=== PATIENT | female | born 1950 | race Caucasian/White ===

== ENCOUNTER → 2019-02-02 09:43 | Outpatient (CLI) | payer MEDICARE, BC, SELFPAY ==
--- NOTE | 2019-02-02 | DI.MRI.S_ITS ---
PROCEDURE: MR LUMBAR SPINE WO CON INDICATIONS: LUMBAR SPINE PAIN TECHNIQUE: Noncontrast sagittal T1 spin echo and T2 fast echo, sagittal STIR, axial T1 and T2 fast spin echo through the lumbar spine. In cases with scoliosis, additional coronal T2 fast spin echo may be performed. COMPARISON: [facility], MR, L-SPINE WITHOUT CONTRAST, 12/09/2016, 14:29. FINDINGS: Image quality: Excellent. Alignment and Curvature: There is normal bony alignment. Bone Marrow: Marrow is of normal overall signal. Post surgical changes from posterior transpedicular fusion and interbody cage graft placement at L4-5 level are again seen. No acute vertebral body compression fractures. Spinal Cord: Conus medullaris terminates at the T12-L1 level. Visualized cord demonstrates normal signal and size. Paraspinous Soft Tissues: No paravertebral masses. L1-L2: Normal appearance. L2-L3: Normal appearance. L3-L4: Broad-based disc bulge and bilateral facet arthrosis is again seen. There is mild central canal stenosis and [id number] bilateral neuroforaminal narrowing progressed since previous study in 2017. There is likely compression of bilateral exiting L3 nerve roots. L4-L5: Bilateral facet arthrosis is seen. Mild left-sided neuroforaminal narrowing is again noted unchanged from prior study. Mild to moderate right neuroforaminal narrowing is also likely present, unchanged from prior study. L5-S1: Diffuse disc bulge and bilateral facet arthrosis is seen with mild central canal stenosis and bilateral neuroforaminal narrowing unchanged from previous study. IMPRESSION: 1. Prior transpedicular fusion at L4-5 level. No marrow edema. No compression fracture or spondylolisthesis. 2. Slightly worsened broad-based disc bulge and bilateral facet arthrosis at L3-4 level causing moderate central canal stenosis and moderate to severe bilateral neuroforaminal narrowing and mild compression of bilateral exiting L3 nerve roots. 3. Mild bilateral neuroforaminal narrowing at L4-5 level is again seen and unchanged. Diffuse disc bulge and bilateral facet arthrosis at L5-S1 level causing mild central canal stenosis and bilateral neuroforaminal narrowing also unchanged from prior study. Dictated by: Lee Boucher M.D. on 02/02/2019 at 10:37 Approved by: Lee Boucher M.D. on 02/02/2019 at 10:54
== END ==
PROVIDERS: PCP Family Medicine; Visit Provider Physical Medicine & Rehabilitation Pain Medicine
DX: M51.26 Other intervertebral disc displacement, lumbar region (principal); M51.27 Other intervertebral disc displacement, lumbosacral region; M47.816 Spondylosis without myelopathy or radiculopathy, lumbar region; M47.817 Spondylosis without myelopathy or radiculopathy, lumbosacral region; M48.061 Spinal stenosis, lumbar region without neurogenic claudication; M48.07 Spinal stenosis, lumbosacral region; Z98.1 Arthrodesis status
CPT/HCPCS: 72148

== ENCOUNTER 2020-01-12 12:33 | Emergency (ER) | payer MEDICARE, BC, SELFPAY ==
--- NOTE | 2020-01-12 12:35 | DI.RAD.S_ITS ---
PROCEDURE: XR CHEST 1V INDICATIONS: chest pain TECHNIQUE: One view of the chest was acquired. COMPARISON: [facility], , CHEST 1 VIEW, 12/08/2017, 12:24. FINDINGS: Surgical changes and devices: None. Lungs and pleura: Lungs are clear. No pleural effusions or pneumothorax. Mediastinum: Mediastinal contours appear normal. Heart size is enlarged. Bones and chest wall: No suspicious bony lesions. Overlying soft tissues appear unremarkable. IMPRESSION: No acute pulmonary process. Dictated by: Aneta Pascal M.D. on 01/12/2020 at 12:53 Approved by: Aneta Pascal M.D. on 01/12/2020 at 12:53
[2020-01-12 12:40] VITALS: BP 166/85; PULSE 80; RESP 18; TEMP 36.4; O2SAT 99
[2020-01-12 12:54] LABS: Add Manual Diff / Slide Review NO; Basophils Absolute Auto 100 /uL (0-100); Eosinophils Absolute Auto 200 /uL (0-450); Eosinophils Percent Auto 2.3 % (2-4); Hematocrit 44.1 % (36-46); Lymphocytes Absolute Auto 2700 /uL (1100-4500); Lymphocytes Percent Auto 34.5 % (25-40); Mean Corpuscular HGB Conc 34.1 % (30-36); Mean Corpuscular Hemoglobin 32.8 PG (26-34); Mean Corpuscular Volume 96.4 fL (80-100); Monocytes Absolute Auto 800 /uL (0-900); Monocytes Percent Auto 10.6 % (3-14); Neutrophils Absolute Auto 4000 /uL (1500-7000); Neutrophils Percent Auto 51.6 % (50-75); Platelet Count 275 X10^3/uL (150-400); Red Blood Cell Count 4.58 X10^6/uL (4.0-5.2); Red Cell Distribution Width 13.6 % (11.6-14.8); White Blood Cell Count 7.8 X10^3/uL (4.5-11.0)
[2020-01-12 12:55] LABS: Prothrombin Time 11.2 SECONDS (10.1-12.7)
--- NOTE | 2020-01-12 12:55 | ED_ITS ---
HPI - Chest Pain General Chief Complaint: Chest Pain Stated Complaint: symptoms of a heart attack Time Seen by Provider: 01/12/20 12:35 Source: patient Mode of arrival: Ambulatory Limitations: no limitations History of Present Illness HPI narrative: CC: Chest pain HPI: The patient is a 69-year-old female who states that yesterday evening she developed pain in her left shoulder which she thought was secondary to a musculoskeletal etiology. At approximately 3:00 a.m. in the morning she rolled over on her right side and developed severe pain in her left chest around her left breast and side. She also developed a pulse and throbbing in her neck. She stated that when she was lying on her left side she continued to have the pain and discomfort but it was not as intense as on the right side. The pain was sharp and stabbing in nature. She denies being short of breath having any dizziness or being lightheaded. She has had no palpitations or irregular heartbeat. Laying on the right side causes more pain than on the left side. She denies have her having a myocardial infarction congestive heart failure thrombophlebitis or pulmonary embolism. She has had no history of diabetes mellitus or pancreatitis. She denies any fever chills sweats headache nasal drainage but has had a chronic sinus congestion without sore throat. She has had no shortness of breath cough palpitations. She has had chronic low back pain with multiple herniated disc in her low back as well as in her neck. She states that she is in good health other than her spinal column. She denies any abdominal pain nausea vomiting in digestion heartburn diarrhea or urinary symptoms. Her pain and discomfort at this time was 2/10 in intensity. At the worse in the middle the night it was 10/10 in intensity. She denies any kidney problems or kidney failure. Related Data Home Medications Medication Instructions Recorded Confirmed [SANAM RAMOS] 1 tab PO BID #0 12/08/17 acetaminophen 650 mg PO QDAY #0 12/08/17 cetirizine 10 mg PO QDAY #0 12/08/17 cyanocobalamin (vitamin B-12) 500 mcg PO QDAY #0 12/08/17 [Vitamin B-12] diclofenac sodium [Voltaren] 1 ann TOPICAL PRN PRN #0 12/08/17 docusate sodium [DOK] 250 mg PO QDAYP PRN #0 12/08/17 fluticasone propionate [Flonase 1 spray INTRANASAL QDAYP PRN #0 12/08/17 Allergy Relief] folic acid 0.4 mg PO QDAY #0 12/08/17 ibuprofen 200 mg PO QID #0 12/08/17 Previous Rx's Medication Instructions Recorded cyclobenzaprine 10 mg PO TID PRN #15 tab 01/12/20 naproxen [Naprosyn] 500 mg PO BID PRN #20 tab 01/12/20 tramadol 50 mg PO BID PRN #10 tab 01/12/20 Allergies Allergy/AdvReac Type Severity Reaction Status Date / Time nortriptyline [NORTRIPTYLINE] Allergy Severe DIFF. Verified 01/12/20 12:42 BREATHING codeine AdvReac Intermediate STOMACH Verified 01/12/20 12:42 DISTRESS LORENZO PEPPERS Allergy Unknown Uncoded 01/12/20 12:42 GREEN BEANS Allergy Unknown Uncoded 01/12/20 12:42 STAS NUTS Allergy Unknown Uncoded 01/12/20 12:42 Patient History Social History Smoking Status: Never smoker Smoking Status: Never smoker alcohol intake frequency: 0-2 drinks per day Substance Use Type: does not use Exam Narrative Exam Narrative: PHYSICAL EXAM: CONSTITUTIONAL: Awake, Alert, Oriented, Coherent, Cooperative in NAD. Does not appear toxic or ill. HEAD: AT/NC EENT: PERRL, FROM of eyes, no discharge, No drainage from the ears, Tympanic membranes intact bilaterally, clear EAC No epistaxis or nasal drainage Oral mucosa is moist and pink, posterior pharynx is without erythema or exudate. NECK: Supple, no obvious JVD, Trachea is midline without stridor, no palpable LN SPINE: No gross deformity, no palpable tenderness of the cervical, thoracic, lumbar or sacral spine. No CVA tenderness. THORAX: No deformity, retractions, no significant chest wall tenderness to AP compression over the right and left chest. However palpation along the left lower costal sternal margin cause the patient to grimace and sister slightly but was not reproducible. LUNGS: Clear with symmetrical breath sounds without respiratory distress HEART: Normal heart tones, regular rhythm and rate without murmur. ABDOMEN: Soft, non-tender, normal bowel sounds without guarding, rebound, rigidity or palpable mass EXTREMITIES: No edema, cyanosis, deformity or tenderness. SKIN: No rash, bruising, petechiae or purpura. NEURO: Awake, alert, oriented, conversive, cranial nerves II-XII are symmetrical and normal, moves all 4 extremities and is ambulatory Initial Vital Signs Initial Vital Signs: Vital Signs Temperature 97.5 F L 01/12/20 12:40 Pulse Rate 80 01/12/20 12:40 Respiratory Rate 18 01/12/20 12:40 Blood Pressure 166/85 H 01/12/20 12:40 Pulse Oximetry 99 01/12/20 12:40 Course Course Course Narrative: 1410 the patient's chest x-ray revealed no acute cardiopulmonary process. The patient's laboratory chemistries are within normal limits with her initial troponin being 0.0 1 2. Her D-dimer remains pending. 1416. The patient's chest x-ray did not reveal any acute cardiopulmonary disease. The patient's troponin was less than 0.012. Will repeat a 2 hour troponin. Her D-dimer was less than 200. Clinically I believe that the patie nt's chest pain is musculoskeletal in nature. 1423 The patient at the present time is pain free. I explained to her that all of her laboratory tests so far and x-rays as well as EKG were within normal limits. I explained to her that her pain and discomfort sounds musculoskeletal in nature. However we are checking repeat cardiac enzymes. Orders Ordered: ED Orders 01/12/20 12:35 XR chest 1V Stat EKG-12 Lead Stat 01/12/20 12:40 Complete Blood Count AUTO DIFF Stat Comprehensive Metabolic Panel Stat D Dimer Stat Lipase Stat Partial Thromboplastin Time Stat Prothrombin Time INR Stat Troponin & CK Cardiac Panel Stat 01/12/20 13:25 XR shoulder LT min 2V Stat 01/12/20 14:28 Trop I [Troponin I] Stat Discontinued Medications Ketorolac Tromethamine (Toradol) 30 mg IV NOW ONE Stop: 01/12/20 13:28 Last Admin: 01/12/20 13:36 Dose: 30 mg Documented by: NUNO Vital Signs Vital signs: Vital Signs - 8 hr 01/12/20 12:40 01/12/20 14:00 01/12/20 15:30 Temperature 97.5 F L Pulse Rate 80 78 60 Respiratory Rate 18 26 H 13 Blood Pressure 166/85 H Blood Pressure [Right Arm] 94/61 123/57 L Pulse Oximetry 99 99 99 01/12/20 15:55 Temperature Pulse Rate 61 Respiratory Rate 17 Blood Pressure Blood Pressure [Right Arm] Pulse Oximetry 97 MDM - Chest Pain Lab Data Result diagrams: 01/12/20 12:40 01/12/20 12:40 Labs: Lab Results 01/12/20 01/12/20 01/12/20 Range/Units 12:40 12:40 12:40 WBC 7.8 (4.5-11.0) X10^3/uL RBC 4.58 (4.0-5.2) X10^6/uL Hgb 15.0 (12.0-16.0) g/dL Hct 44.1 (36-46) % MCV 96.4 (80-100) fL MCH 32.8 (26-34) PG MCHC 34.1 (30-36) % RDW 13.6 (11.6-14.8) % Plt Count 275 (150-400) X10^3/uL Neut % (Auto) 51.6 (50-75) % Lymph % (Auto) 34.5 (25-40) % [place] % (Auto) 10.6 (3-14) % Eos % (Auto) 2.3 (2-4) % Baso % (Auto) 1.0 (0-2) % Neut # (Auto) 4000 (2799-8625) /uL Lymph # (Auto) 2700 (7769-7738) /uL [place] # (Auto) 800 (0-900) /uL Eos # (Auto) 200 (0-450) /uL Baso # (Auto) 100 (0-100) /uL PT 11.2 (10.1-12.7) SECONDS INR 1.0 (0.9-1.3) APTT 30 (26.4-36.2) SECONDS D-Dimer (<230) ng/mL Sodium 140 (137-145) mmol/L Potassium 4.1 (3.4-5.1) mmol/L Chloride 105 (98-107) mmol/L Carbon Dioxide 27 (22-32) mmol/L BUN 21 H (7-17) mg/dL Creatinine 0.74 (0.52-1.04) mg/dL Estimated GFR > 60.0 (>60) mL/min BUN/Creatinine Ratio 28.4 H (6-22) Glucose 104 (80-110) mg/dL Calcium 10.0 (8.4-10.2) mg/dL Total Bilirubin 0.5 (0.2-1.3) mg/dL AST 32 (14-36) IU/L ALT 14 (<35) IU/L Alkaline Phosphatase 67 (38-126) U/L Total Creatine Kinase 31 (30-135) U/L CK-MB (CK-2) TNP CK-MB (CK-2) Rel Index TNP Troponin I < 0.012 (0.01-0.034) ng/mL Total Protein 8.8 H (6.3-8.2) g/dL Albumin 4.9 (3.5-5.0) g/dL Globulin 3.9 (1.7-4.1) g/dL Albumin/Globulin Ratio 1.3 (1.0-2.8) Lipase 102 (23-300) U/L 01/12/20 01/12/20 Range/Units 12:40 14:28 WBC (4.5-11.0) X10^3/uL RBC (4.0-5.2) X10^6/uL Hgb (12.0-16.0) g/dL Hct (36-46) % MCV (80-100) fL MCH (26-34) PG MCHC (30-36) % RDW (11.6-14.8) % Plt Count (150-400) X10^3/uL Neut % (Auto) (50-75) % Lymph % (Auto) (25-40) % [place] % (Auto) (3-14) % Eos % (Auto) (2-4) % Baso % (Auto) (0-2) % Neut # (Auto) (8104-2012) /uL Lymph # (Auto) (1039-7308) /uL [place] # (Auto) (0-900) /uL Eos # (Auto) (0-450) /uL Baso # (Auto) (0-100) /uL PT (10.1-12.7) SECONDS INR (0.9-1.3) APTT (26.4-36.2) SECONDS D-Dimer < 200 (<230) ng/mL Sodium (137-145) mmol/L Potassium (3.4-5.1) mmol/L Chloride (98-107) mmol/L Carbon Dioxide (22-32) mmol/L BUN (7-17) mg/dL Creatinine (0.52-1.04) mg/dL Estimated GFR (>60) mL/min BUN/Creatinine Ratio (6-22) Glucose (80-110) mg/dL Calcium (8.4-10.2) mg/dL Total Bilirubin (0.2-1.3) mg/dL AST (14-36) IU/L ALT (<35) IU/L Alkaline Phosphatase (38-126) U/L Total Creatine Kinase (30-135) U/L CK-MB (CK-2) CK-MB (CK-2) Rel Index Troponin I < 0.012 (0.01-0.034) ng/mL Total Protein (6.3-8.2) g/dL Albumin (3.5-5.0) g/dL Globulin (1.7-4.1) g/dL Albumin/Globulin Ratio (1.0-2.8) Lipase (23-300) U/L ECG Data Attestation: I personally reviewed and interpreted this ECG as follows: Interpretation: The patient's EKG obtained on January 11 at 12:42 p.m. revealed a normal sinus rhythm with low voltage. There are no acute diagnostic ST segment changes noted. The patient has Q-waves in leads V1 with inverted T-wave and a Q-wave in lead III. The patient has nonspecific flattening of the T-waves throughout the entire EKG. Ventricular rate is 64 rhythm is sinus MT interval QRS are normal QTC is 412 milliseconds with a left axis deviation. Discharge Plan Departure Patient Disposition: Home Clinical Impression: Atypical chest pain, Acute chest wall pain Left shoulder pain Qualifiers: Chronicity: acute Qualified Code(s): M25.512 - Pain in left shoulder Discharge Date/Time: 01/12/20 16:15 Instructions: DI for Atypical Chest Pain, DI for Costochondritis, DI for Chest Pain Activity Restrictions/Additional Instructions: 1. Follow-up with your primary care physician you need to be rechecked on Wednesday. 2. If you develop worsening pain or discomfort that lasts longer than 20 minutes and is unrelieved by her current medications you need to return to the emergency department at the time that you are having pain and discomfort to be evaluated. 3. Your chest pain does not sound cardiac in nature and is musculoskeletal in nature. The medications should be taken as prescribed to help relieve your pain and discomfort. Prescriptions: New naproxen [Naprosyn] 500 mg tablet 500 mg PO BID PRN (Reason: pain) Qty: 20 RF: 0 cyclobenzaprine 10 mg tablet 10 mg PO TID PRN (Reason: muscle spasm and pain) Qty: 15 RF: 0 tramadol 50 mg tablet 50 mg PO BID PRN (Reason: pain) Qty: 10 RF: 0 No Action cetirizine 10 MG tablet 10 mg PO QDAY Qty: 0 RF: 0 fluticasone propionate [Flonase Allergy Relief] 9.9 ML spray,suspension 1 spray Intranasal QDAYP PRNQty: 0 RF: 0 diclofenac sodium [Voltaren] 1 % gel 1 ann Topical PRN PRNQty: 0 RF: 0 acetaminophen 650 MG tablet extended release 650 mg PO QDAY Qty: 0 RF: 0 ibuprofen 200 MG tablet 200 mg PO QID Qty: 0 RF: 0 [BLACK RAMOS] 1 tab PO BID Qty: 0 RF: 0 folic acid 0.4 MG tablet 0.4 mg PO QDAY Qty: 0 RF: 0 cyanocobalamin (vitamin B-12) [Vitamin B-12] 500 MCG tablet 500 mcg PO QDAY Qty: 0 RF: 0 docusate sodium [DOK] 250 MG capsule 250 mg PO QDAYP PRNQty: 0 RF: 0 Referrals: Carlos Solano MD [Non-Staff] -
[2020-01-12 12:58] LABS: PTT Partial Thromboplastin Tim 30 SECONDS (26.4-36.2)
[2020-01-12 12:59] LABS: Alanine Aminotransferase 14 IU/L (<35); Albumin 4.9 g/dL (3.5-5.0); Albumin Globulin Ratio 1.3 (1.0-2.8); Alkaline Phosphatase 67 U/L (38-126); Aspartate Aminotransferase 32 IU/L (14-36); BUN Creatinine Ratio 28.4 (6-22); Bilirubin Total 0.5 mg/dL (0.2-1.3); Blood Urea Nitrogen 21 mg/dL (7-17); Carbon Dioxide 27 mmol/L (22-32); Chloride 105 mmol/L (98-107); Creatine Kinase 31 U/L (30-135); Estimated Glomerular Filt Rate > 60.0 mL/min (>60); Globulin 3.9 g/dL (1.7-4.1); Glucose 104 mg/dL (80-110); HEMOLYSIS 38 (0-50); Lipase 102 U/L (23-300); Potassium 4.1 mmol/L (3.4-5.1); Sodium 140 mmol/L (137-145); Total Protein 8.8 g/dL (6.3-8.2)
[2020-01-12 13:10] LABS: Troponin I < 0.012 ng/mL (0.01-0.034)
--- NOTE | 2020-01-12 13:25 | DI.RAD.S_ITS ---
PROCEDURE: XR SHOULDER LT MIN 2V INDICATIONS: left shoulder pain TECHNIQUE: 3 views of the shoulder were acquired. COMPARISON: [facility], CR, XR CHEST 1V, 01/12/2020, 12:38. FINDINGS: Bones: No displaced fractures or dislocations. No suspicious bony lesions. Visualized ribs appear intact. Mild degenerative changes of the acromioclavicular joint are present. Degenerative changes of the included portions of the spine are not adequately characterized. Soft tissues: No suspicious soft tissue calcifications. IMPRESSION: No acute fracture of the left shoulder. Dictated by: Nils Vasquez M.D. on 01/12/2020 at 13:09 Approved by: Nils Vasquez M.D. on 01/12/2020 at 13:09
[2020-01-12] MEDS: KETOROLAC 60 MG/2 ML VIAL 30 MG IV (13:36)
[2020-01-12 13:40] LABS: D Dimer < 200 ng/mL (<230)
[2020-01-12 14:00] VITALS: BP 94/61; PULSE 78; RESP 26; O2SAT 99
[2020-01-12 14:57] LABS: Troponin I < 0.012 ng/mL (0.01-0.034)
[2020-01-12 15:30] VITALS: BP 123/57; PULSE 60; RESP 13; O2SAT 99
[2020-01-12 15:55] VITALS: PULSE 61; RESP 17; O2SAT 97
== END 2020-01-12 16:15 | disposition home or self-care (01) ==
PROVIDERS: Emergency Provider Emergency Medicine; PCP Family Medicine
DX: R07.89 Other chest pain (principal); M25.512 Pain in left shoulder
CPT/HCPCS: 36415; 71045; 73030; 80053; 82550; 83690; 84484; 85025; 85379; 85610; 85730; 93005; 93010; 96374; 99284; J1885

== ENCOUNTER 2022-02-24 11:15 | Outpatient (RCR) | payer MEDICARE, BC, SELFPAY ==
--- NOTE | 2022-02-18 15:32 | PT.OIE ---
Current Diagnoses Benign paroxysmal vertigo, right ear (02/18/22) Dizziness and giddiness (02/18/22) Visit Care Team Role Provider Type Juan Petty MD Family Provider Non-Staff Primary Care Provider Specialty: Internal Medicine Address: [address], [place], [address] Email: Lucas Davis MD Attending Provider Non-Staff Referring Provider Specialty: Neurology Address: [place], [address] Email: Physical Therapy Initial Evaluation PT-OP-A Visit Information Start: 02/18/22 07:32 Freq: Status: Active Protocol: Document 02/18/22 10:36 AMB (Rec: 02/18/22 11:28 AMB [id number]) Out-Patient Physical Therapy Visit Information Visit Information Visit Type Initial Evaluation Visit Start Time 10:30 Visit Stop Time 11:05 Total Visit Minutes 35 Visit Number 1 PT-OP-B Current Condition Start: 02/18/22 07:32 Freq: Status: Active Protocol: Document 02/18/22 10:36 AMB (Rec: 02/18/22 11:28 AMB [id number]) Current Condition History of Current Condition Onset Date May 2021 Current Complaints dizziness History of Current Condition Bending forward and reaching up are the worst and bring on the dizziness which pt describes as spinning that lasts 10-20 seconds. Lying down turning to the right is worst. Since May with extended gardening. 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 Treatment Goals Patient/Caregiver Goals Reduce dizziness Personal Factors Other Personal Factors That May Effect long history of neck pain, Therapy/Recovery fibromyaglia, lumbar surgery history with neuropathy, osteoporosis PT-OP-C Subjective Start: 02/18/22 07:32 Freq: Status: Active Protocol: Document 02/18/22 10:30 AMB (Rec: 02/19/22 13:00 AMB [id number]) Patient Questionnaires Dizziness Handicap Inventory DHI Score 72 DHI Functional Impairment 60 to 79% Impaired (Score 60- 79) PT-OP-O Vestibular Start: 02/19/22 13:00 Freq: Status: Active Protocol: Document 02/18/22 10:30 AMB (Rec: 02/19/22 13:01 AMB [id number]) Vestibular Assessment Positional Testing [place]-Hallpike Positive Right,Upbeating,< 60 Seconds Comments Vestibular Comments Pain with cervical extension limits pt to one repetition of Rosa maneuver s/p postivie R DixHallpike. Pt did have increased symptoms in #1 and # 3 positions. Educated in BPPV . PT-OP-T Assessment and Plan Start: 02/18/22 07:32 Freq: Status: Active Protocol: Document 02/18/22 10:30 AMB (Rec: 02/20/22 15:32 AMB [id number]) Physical Therapy Assessment Rehab Potential Rehabilitation Potential Good Evaluation Complexity Number of Personal Factors/Comorbidities 1-2 Number of Body Systems Impaired 3 Clinical Presentation at Evaluation Evolving Impairments Impairments Pain,ROM,Vestibular Goals Two Impairment Positive Emanuel Hallpike Short Term Goal (STG) Maame will show no nystagmus or vertigo with Emanuel Hallpike testing. STG Duration 4 weeks One Impairment Dizziness Short Term Goal (STG) Maame will look up without dizziness. STG Duration 4 weeks Assessment Summary Assessment Maame attends physical therapy with a long history of neck pain and dizziness which increased in May after gardening. She did test positive for BPPV today, although her tolerance of the Rosa was poor due to her chronic neck pain. She will benefit from PT to treat her BPPV, although she may need more visits than standard due to her pre-existing neck pain and dizziness. Physical Therapy Plan Frequency and Duration Frequency of Treatment 2x/Week Duration of Treatment 6 weeks Plan of Care Start Date 02/18/22 Plan of Care End Date 04/01/22 Therapeutic Interventions Therapeutic Interventions Balance Training,Manual Therapy,Neuromuscular Re- education,Self-Care/Home Management,Therapeutic Activities,Therapeutic Exercises,Vestibular Rehabilitation Next Visit Focus/Plan Next Note Type Treatment Note Next Visit Plan Reassess R DixHallpike
--- NOTE | 2022-02-18 15:33 | PT.OPPOC ---
Physical, Occupational & Speech Therapy At [facility] Current Diagnoses Benign paroxysmal vertigo, right ear (02/18/22) Dizziness and giddiness (02/18/22) Visit Care Team Role Provider Type Juan Petty MD Family Provider Non-Staff Primary Care Provider Specialty: Internal Medicine Address: [address], [place], [address] Email: Lucas Davis MD Attending Provider Non-Staff Referring Provider Specialty: Neurology Address: [address] [place], [address] Email: Plan Of Care PT-OP-T Assessment and Plan Start: 02/18/22 07:32 Freq: Status: Active Protocol: Document 02/18/22 10:30 AMB (Rec: 02/20/22 15:32 AMB [id number]) Physical Therapy Assessment Rehab Potential Rehabilitation Potential Good Evaluation Complexity Number of Personal Factors/Comorbidities 1-2 Number of Body Systems Impaired 3 Clinical Presentation at Evaluation Evolving Impairments Impairments Pain,ROM,Vestibular Goals Two Impairment Positive Emanuel Hallpike Short Term Goal (STG) Maame will show no nystagmus or vertigo with [place] Hallpike testing. STG Duration 4 weeks One Impairment Dizziness Short Term Goal (STG) Maame will look up without dizziness. STG Duration 4 weeks Assessment Summary Assessment Maame attends physical therapy with a long history of neck pain and dizziness which increased in May after gardening. She did test positive for BPPV today, although her tolerance of the Rosa was poor due to her chronic neck pain. She will benefit from PT to treat her BPPV, although she may need more visits than standard due to her pre-existing neck pain and dizziness. Physical Therapy Plan Frequency and Duration Frequency of Treatment 2x/Week Duration of Treatment 6 weeks Plan of Care Start Date 02/18/22 Plan of Care End Date 04/01/22 Therapeutic Interventions Therapeutic Interventions Balance Training,Manual Therapy,Neuromuscular Re- education,Self-Care/Home Management,Therapeutic Activities,Therapeutic Exercises,Vestibular Rehabilitation Next Visit Focus/Plan Next Note Type Treatment Note Next Visit Plan Reassess R Marika Plan of Care Dates Plan of Care Start Date 02/18/22 Plan of Care End Date 04/01/22 Electronically Signed by: Lucinda Koenig, PT 02/20/22 8904 If you are in agreement with this Plan of Care, please return a signed and dated copy. I have reviewed this Plan of Care and certify that the skilled therapy services above are required to meet the patient?s needs. Physician Signature Date Printed Name and Credentials Clinical Instructor Signature Printed Name and Credentials
--- NOTE | 2022-02-24 13:00 | PT.OTN ---
Current Diagnoses Benign paroxysmal vertigo, right ear (02/24/22) Dizziness and giddiness (02/24/22) Physical Therapy Treatment Note PT-OP-A Visit Information Start: 02/18/22 07:32 Freq: Status: Active Protocol: Document 02/24/22 11:18 AMB (Rec: 02/24/22 12:59 AMB [id number]) Out-Patient Physical Therapy Visit Information Visit Information Visit Type Treatment Note Visit Start Time 11:15 Visit Stop Time 11:30 Total Visit Minutes 15 Visit Number 2 PT-OP-B Current Condition Start: 02/18/22 07:32 Freq: Status: Active Protocol: Document 02/18/22 10:36 AMB (Rec: 02/18/22 11:28 AMB [id number]) Current Condition History of Current Condition Onset Date May 2021 Current Complaints dizziness History of Current Condition Bending forward and reaching up are the worst and bring on the dizziness which pt describes as spinning that lasts 10-20 seconds. Lying down turning to the right is worst. Since May with extended gardening. 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 Treatment Goals Patient/Caregiver Goals Reduce dizziness Personal Factors Other Personal Factors That May Effect long history of neck pain, Therapy/Recovery fibromyaglia, lumbar surgery history with neuropathy, osteoporosis PT-OP-C Subjective Start: 02/18/22 07:32 Freq: Status: Active Protocol: Document 02/24/22 11:18 AMB (Rec: 02/24/22 12:59 AMB [id number]) OP-PT Subjective Patient Comments Patient Comments Pt feels like sx have pretty much resolved, can roll over onto her right side without dizziness now, did have a signficiant amount of neck pain. PT-OP-O Vestibular Start: 02/19/22 13:00 Freq: Status: Active Protocol: Document 02/18/22 10:30 AMB (Rec: 02/19/22 13:01 AMB [id number]) Vestibular Assessment Positional Testing Emanuel-Hallpike Positive Right,Upbeating,< 60 Seconds Comments Vestibular Comments Pain with cervical extension limits pt to one repetition of Rosa maneuver s/p postivie R DixHallpike. Pt did have increased symptoms in #1 and # 3 positions. Educated in BPPV . PT-OP-Q Treatments Start: 02/18/22 07:32 Freq: Status: Active Protocol: Document 02/24/22 11:18 AMB (Rec: 02/24/22 12:59 AMB [id number]) Neuro Re-Education Treatment Other Activities 1 Details R DixHallpike Comments negative, education provided. PT-OP-T Assessment and Plan Start: 02/18/22 07:32 Freq: Status: Active Protocol: Document 02/24/22 11:18 AMB (Rec: 02/24/22 12:59 AMB [id number]) Physical Therapy Assessment Goals Two Impairment Positive Emanuel Hallpike Short Term Goal (STG) Maame will show no nystagmus or vertigo with Emanuel Hallpike testing. STG Duration 4 weeks One Impairment Dizziness Short Term Goal (STG) Maame will look up without dizziness. STG Duration 4 weeks Assessment Summary Assessment Provided with handout for self R Rosa if sx resume in the distant future, but did encourage her to seek out PT if that happens given her history of neck pain. No nystagmus or dizziness today. Physical Therapy Plan Discharge Physical Therapy Discharge Comments No nystagmus or dizziness with R DixHallpike
== END 2022-02-25 12:59 ==
LOC: PHYS 11:15
PROVIDERS: Family Provider Internal Medicine; PCP Internal Medicine; Referring Provider Psychiatry & Neurology Neurology; Visit Provider Psychiatry & Neurology Neurology
DX: R42 Dizziness and giddiness (principal); H81.11 Benign paroxysmal vertigo, right ear
CPT/HCPCS: 97112; 97162

== ENCOUNTER 2022-05-07 14:00 | Outpatient (RCR) | payer MEDICARE, BC, SELFPAY ==
--- NOTE | 2022-04-29 14:27 | PT.OIE ---
Current Diagnoses Dizziness and giddiness (04/29/22) Visit Care Team Role Provider Type Juan Petty MD Attending Provider Non-Staff Family Provider Primary Care Provider Referring Provider Specialty: Internal Medicine Address: [facility] [address], [place], [address] Email: Physical Therapy Initial Evaluation PT-OP-A Visit Information Start: 04/28/22 15:23 Freq: Status: Active Protocol: Document 04/29/22 13:01 AMB (Rec: 04/29/22 13:31 AMB [id number]) Out-Patient Physical Therapy Visit Information Visit Information Visit Type Initial Evaluation Visit Start Time 13:00 Visit Stop Time 13:45 Total Visit Minutes 45 Visit Number 1 PT-OP-B Current Condition Start: 04/28/22 15:23 Freq: Status: Active Protocol: Document 04/29/22 13:01 AMB (Rec: 04/29/22 13:31 AMB [id number]) Current Condition History of Current Condition Onset Date mid March Current Complaints dizziness (worst on the right) History of Current Condition Same thing as a couple months ago. Rolling over to the right. Was doing just fine, out gardening then dizziness came back. PT-OP-C Subjective Start: 04/28/22 15:23 Freq: Status: Active Protocol: Document 04/29/22 13:00 AMB (Rec: 04/29/22 14:27 AMB [id number]) Patient Questionnaires Dizziness Handicap Inventory DHI Score 64 PT-OP-O Vestibular Start: 04/28/22 15:23 Freq: Status: Active Protocol: Document 04/29/22 13:00 AMB (Rec: 04/29/22 14:27 AMB [id number]) Vestibular Assessment Positional Testing Emanuel-Hallpike Positive Right PT-OP-T Assessment and Plan Start: 04/28/22 15:23 Freq: Status: Active Protocol: Document 04/29/22 13:00 AMB (Rec: 04/29/22 14:27 AMB [id number]) Physical Therapy Assessment Rehab Potential Rehabilitation Potential Good Evaluation Complexity Number of Personal Factors/Comorbidities 3 or More Number of Body Systems Impaired 1-2 Clinical Presentation at Evaluation Stable Impairments Impairments Pain,Vestibular Goals Two Impairment Dizziness Short Term Goal (STG) Maame will bend over to garden without dizziness. STG Duration 4 weeks Senior Living Goal (LTG) Maame will perform all bed mobility without dizziness. LTG Duration 8 weeks One Impairment [place]-Hallpike Short Term Goal (STG) Maame will have a negative Emanuel-Hallpike for dizziness and nystagmus. Assessment Summary Assessment Maame returns to physical therapy 2 months s/p resolution of her previous R sided BPPV. She did have torsional upbeating nystagmus with R Emanuel-hallpike today. Pt concerned that gardening may be causing return of sx, as pt does spend an extended time in a forward bent posture due to chronic hip pain that makes it difficult to kneel or squat. Her neck pain does make it difficult to perform the Rosa maneuver, but she was able to tolerate x 2 today . Possible longer treatment duration necessary due to fast return of sx. Physical Therapy Plan Frequency and Duration Frequency of Treatment 2x/Week Duration of Treatment 8 weeks Plan of Care Start Date 04/29/22 Plan of Care End Date 06/24/22 Therapeutic Interventions Therapeutic Interventions Balance Training,Canalithic Repositioning,Home Exercise Program,Neuromuscular Re- education,Self-Care/Home Management,Therapeutic Activities,Therapeutic Exercises,Vestibular Rehabilitation Next Visit Focus/Plan Next Note Type Treatment Note Next Visit Plan Recheck R Emanuel-Hallpike
--- NOTE | 2022-04-29 14:28 | PT.OPPOC ---
Physical, Occupational & Speech Therapy At [facility] Current Diagnoses Dizziness and giddiness (04/29/22) Visit Care Team Role Provider Type Juan Petty MD Attending Provider Non-Staff Family Provider Primary Care Provider Referring Provider Specialty: Internal Medicine Address: [facility] [address], [place], [address] Email: Plan Of Care PT-OP-T Assessment and Plan Start: 04/28/22 15:23 Freq: Status: Active Protocol: Document 04/29/22 13:00 AMB (Rec: 04/29/22 14:27 AMB [id number]) Physical Therapy Assessment Rehab Potential Rehabilitation Potential Good Evaluation Complexity Number of Personal Factors/Comorbidities 3 or More Number of Body Systems Impaired 1-2 Clinical Presentation at Evaluation Stable Impairments Impairments Pain,Vestibular Goals Two Impairment Dizziness Short Term Goal (STG) Maame will bend over to garden without dizziness. STG Duration 4 weeks International Organizer Goal (LTG) Maame will perform all bed mobility without dizziness. LTG Duration 8 weeks One Impairment Emanuel-Hallpike Short Term Goal (STG) Maame will have a negative [place]-Hallpike for dizziness and nystagmus. Assessment Summary Assessment Maame returns to physical therapy 2 months s/p resolution of her previous R sided BPPV. She did have torsional upbeating nystagmus with R Emanuel-hallpike today. Pt concerned that gardening may be causing return of sx, as pt does spend an extended time in a forward bent posture due to chronic hip pain that makes it difficult to kneel or squat. Her neck pain does make it difficult to perform the Rosa maneuver, but she was able to tolerate x 2 today . Possible longer treatment duration necessary due to fast return of sx. Physical Therapy Plan Frequency and Duration Frequency of Treatment 2x/Week Duration of Treatment 8 weeks Plan of Care Start Date 04/29/22 Plan of Care End Date 06/24/22 Therapeutic Interventions Therapeutic Interventions Balance Training,Canalithic Repositioning,Home Exercise Program,Neuromuscular Re- education,Self-Care/Home Management,Therapeutic Activities,Therapeutic Exercises,Vestibular Rehabilitation Next Visit Focus/Plan Next Note Type Treatment Note Next Visit Plan Recheck R [place]-Hallpike Plan of Care Dates Plan of Care Start Date 04/29/22 Plan of Care End Date 06/24/22 Electronically Signed by: Lucinda Koenig, TORIE 04/29/22 [id number] If you are in agreement with this Plan of Care, please return a signed and dated copy. I have reviewed this Plan of Care and certify that the skilled therapy services above are required to meet the patient?s needs. Physician Signature Date Printed Name and Credentials Clinical Instructor Signature Printed Name and Credentials
--- NOTE | 2022-05-07 14:36 | PT.OTN ---
Current Diagnoses Dizziness and giddiness (05/07/22) Physical Therapy Treatment Note PT-OP-A Visit Information Start: 04/28/22 15:23 Freq: Status: Active Protocol: Document 05/07/22 14:05 AMB (Rec: 05/07/22 14:22 AMB [id number]) Out-Patient Physical Therapy Visit Information Visit Information Visit Type Treatment Note Visit Start Time 14:00 Visit Stop Time 14:30 Total Visit Minutes 30 Visit Number 2 PT-OP-B Current Condition Start: 04/28/22 15:23 Freq: Status: Active Protocol: Document 04/29/22 13:01 AMB (Rec: 04/29/22 13:31 AMB [id number]) Current Condition History of Current Condition Onset Date mid March Current Complaints dizziness (worst on the right) History of Current Condition Same thing as a couple months ago. Rolling over to the right. Was doing just fine, out gardening then dizziness came back. PT-OP-C Subjective Start: 04/28/22 15:23 Freq: Status: Active Protocol: Document 05/07/22 14:00 AMB (Rec: 05/07/22 14:32 AMB [id number]) OP-PT Subjective Patient Comments Patient Comments Pt continues to have dizziness , neck pain was really bad. PT-OP-O Vestibular Start: 04/28/22 15:23 Freq: Status: Active Protocol: Document 04/29/22 13:00 AMB (Rec: 04/29/22 14:27 AMB [id number]) Vestibular Assessment Positional Testing Emanuel-Hallpike Positive Right PT-OP-Q Treatments Start: 04/28/22 15:23 Freq: Status: Active Protocol: Document 05/07/22 14:00 AMB (Rec: 05/07/22 14:32 AMB [id number]) Canalithic Repositioning BPPV Treatment Rosa Affected Canal(s) R Rosa Reps 2 Comments UPbeating torsional nystagmus with first rep, not with second. PT-OP-T Assessment and Plan Start: 04/28/22 15:23 Freq: Status: Active Protocol: Document 05/07/22 14:05 AMB (Rec: 05/07/22 14:22 AMB [id number]) Physical Therapy Assessment Goals Two Impairment Dizziness Short Term Goal (STG) Maame will bend over to garden without dizziness. STG Duration 4 weeks Custodial Goal (LTG) Maame will perform all bed mobility without dizziness. LTG Duration 8 weeks One Impairment [place]-Hallpike Short Term Goal (STG) Maame will have a negative Emanuel-Hallpike for dizziness and nystagmus. Assessment Summary Assessment Maame was positive with Jessa Hairston again, Rosa performed x 2, then encouraged to adhere to post manuever precautions and avoiding gardening with head below waist for now.
--- NOTE | 2022-06-25 13:18 | PT.OPDS ---
Current Diagnoses Dizziness and giddiness (05/07/22) Visit Care Team Role Provider Type Juan Petty MD Attending Provider Non-Staff Family Provider Primary Care Provider Referring Provider Specialty: Internal Medicine Address: [facility] [address], [place], [address] Email: Visit Number Visit Number 2 Discharge Summary PT-OP-B Current Condition Start: 04/28/22 15:23 Freq: Status: Active Protocol: Document 04/29/22 13:01 AMB (Rec: 04/29/22 13:31 AMB [id number]) Current Condition History of Current Condition Onset Date mid March Current Complaints dizziness (worst on the right) History of Current Condition Same thing as a couple months ago. Rolling over to the right. Was doing just fine, out gardening then dizziness came back. PT-OP-C Subjective Start: 04/28/22 15:23 Freq: Status: Active Protocol: Document 05/07/22 14:00 AMB (Rec: 05/07/22 14:32 AMB [id number]) OP-PT Subjective Patient Comments Patient Comments Pt continues to have dizziness , neck pain was really bad. PT-OP-O Vestibular Start: 04/28/22 15:23 Freq: Status: Active Protocol: Document 04/29/22 13:00 AMB (Rec: 04/29/22 14:27 AMB [id number]) Vestibular Assessment Positional Testing Emanuel-Hallpike Positive Right PT-OP-T Assessment and Plan Start: 04/28/22 15:23 Freq: Status: Active Protocol: Document 06/25/22 13:17 AMB (Rec: 06/25/22 13:18 AMB [id number]) Physical Therapy Assessment Assessment Summary Assessment Pt pt on hold after successful Rosa treatment for BPPV, pt has had resolution of sx and requests d/c at this time. Physical Therapy Plan Discharge Physical Therapy Discharge Reasons Goals Met
== END 2022-06-26 16:01 | disposition home or self-care (01) ==
LOC: PHYS 14:00
PROVIDERS: Family Provider Internal Medicine; PCP Internal Medicine; Referring Provider Internal Medicine; Visit Provider Internal Medicine
DX: R42 Dizziness and giddiness (principal)
CPT/HCPCS: 95992; 97161

== ENCOUNTER → 2022-05-21 12:38 | Outpatient (CLI) | payer MEDICARE, BC, SELFPAY ==
--- NOTE | 2022-05-21 12:40 | DI.MRI.S_ITS ---
PROCEDURE: MR LUMBAR SPINE WO CON INDICATIONS: Radiculopathy, lumbosacral region TECHNIQUE: Noncontrast sagittal T1 spin echo and T2 fast echo, sagittal STIR, and T2 fast spin echo through the lumbar spine. In cases with scoliosis, additional coronal T2 fast spin echo may be performed. COMPARISON: [facility], MR, L-SPINE WITHOUT CONTRAST, 12/09/2016, 14:29. [facility], MR, L-SPINE WITHOUT CONTRAST, 03/05/2014, 9:29. [facility], CT, L-SPINE WITHOUT CONTRAST, 08/02/2014, 12:40. [facility], MR, MR LUMBAR SPINE WO CON, 02/02/2019, 10:00. [facility], CR, XR LUMBAR SPINE WITH OBLIQUES PLUS FLEXION EXTENSION, 05/12/2022, 15:55. FINDINGS: Image quality: This examination is limited by involuntary motion artifact. Alignment and Curvature: There is minimal retrolisthesis at L3-L4 and minimal anterolisthesis at L4-L5. Bone Marrow: Marrow is of normal overall signal. No acute vertebral body compression fractures. Spinal Cord: Conus medullaris terminates at the T12-L1 level. Visualized cord demonstrates normal signal and size. Paraspinous Soft Tissues: No paravertebral masses. T12-L1: Normal appearance. L1-L2: Normal appearance. L2-L3: The disc height and disc signal are relatively well preserved. Mild generalized disc bulge is seen. Moderate facet joint hypertrophy is seen. There is [id number]-[id number] right-sided and mild left-sided neural foraminal narrowing. No central canal narrowing is seen. These imaging findings have progressed compared to the prior study. L3-L4: Mild loss of disc height is seen. Loss of disc signal is seen. Moderate generalized disc bulge is seen. There is a superimposed central disc protrusion. Moderate facet joint hypertrophy is seen. There is at least moderate bilateral neural foraminal narrowing seen. There is a degree of compression seen upon the exiting nerve roots. Moderate central canal narrowing is seen. When comparison is made with the prior images, these findings are similar. L4-L5: Postoperative changes are seen at this level, with bilateral pedicle screws and vertical fixation rods. A disc spacer is seen. Mild generalized disc bulge is seen. Mild facet joint hypertrophy is seen. There is moderate right-sided and mild left-sided neural foraminal narrowing. The central canal is widely patent. No significant change from the prior. L5-S1: Moderate loss of disc height is seen. Loss of disc signal is seen. Mild to moderate disc bulge is seen. Mild to moderate facet hypertrophy can be seen. There is at least moderate bilateral neural foraminal narrowing seen. No central canal narrowing is seen. These imaging findings have progressed compared to the prior study. IMPRESSION: Multiple levels of lumbar spine degenerative change are seen, which are progressed at L2-L3 and L5-S1 compared to 2019. Stable L4-5 postoperative hardware. Dictated by: Angus Villa M.D. on 05/21/2022 at 15:26 Approved by: Angus Villa M.D. on 05/21/2022 at 15:31
== END ==
PROVIDERS: Family Provider Internal Medicine; PCP Internal Medicine; Referring Provider Physical Medicine & Rehabilitation Pain Medicine; Visit Provider Physical Medicine & Rehabilitation Pain Medicine
DX: M54.17 Radiculopathy, lumbosacral region (principal); Z98.1 Arthrodesis status
CPT/HCPCS: 72148

== ENCOUNTER → 2025-01-05 11:45 | Outpatient (CLI) | payer MEDICARE, BC, SELFPAY ==
--- NOTE | 2025-01-05 11:48 | DI.MRI.S_ITS ---
PROCEDURE: MR LUMBAR SPINE WO CON INDICATIONS: Spinal stenosis TECHNIQUE: Noncontrast sagittal T1 spin echo and T2 fast echo, sagittal STIR, and T2 fast spin echo through the lumbar spine. In cases with scoliosis, additional coronal T2 fast spin echo may be performed. COMPARISON: [facility], MR, MR LUMBAR SPINE WO CON, 05/21/2022, 12:47. FINDINGS: Image quality: Excellent Posterior fusion instrumentation with posterior decompression and interbody spacer at L4-5. Mild retrolisthesis of L3 on L4. Grade 1 anterolisthesis of L4 on L5, mild retrolisthesis of L5 on S1. Vertebral body height of the lumbar spine are well maintained. There is a mildly T2 hyperintense, fat containing lesion in the anterior aspect of T2 vertebral body, unchanged from prior exam , likely representing a vertebral hemangioma. Mild fibrovascular end plate change at L2-3, and L5-S1. No suspicious marrow replacing lesion. Multilevel disc bulge and disc desiccation. Conus terminates at the level of L1-2, and is unremarkable. Right neural foraminal stenosis: Mild at L2-3, L3-4, and L4-5. Moderate at L5-S1. Left neural foraminal stenosis: Mild at L3-4 and L5-S1. Axial images: T12-L1: No central canal stenosis. L1-2: No central canal stenosis. L2-3: Moderate bilateral facet arthropathy with fluid within bilateral facet. Epidural lipomatosis. Mild central canal stenosis. L3-4: Mild bilateral facet arthropathy. Epidural lipomatosis. Severe central canal stenosis. Ligamentum flap hypertrophy. L4-5: Right laminectomy. Posterior disc uncovering. No central canal stenosis. L5-S1: Disc bulge. Mild right moderate left facet arthropathy. No central canal stenosis. Visualized sacrum is unremarkable. No abdominal aortic aneurysm. IMPRESSION: 1. Postprocedure changes of the lumbar spine. 2. Multilevel degenerative changes of the lumbar spine, most pronounced at L3-4, where there is severe central canal stenosis, progressed from prior exam. 3. Multilevel up to moderate neural foraminal stenosis as described above. Dictated by: Clau Joseph M.D. on 01/05/2025 at 14:23 Approved by: Clau Joseph M.D. on 01/05/2025 at 14:35
== END ==
PROVIDERS: Family Provider Internal Medicine; PCP Family Medicine; Referring Provider Orthopaedic Surgery Orthopaedic Surgery of the Spine; Visit Provider Orthopaedic Surgery Orthopaedic Surgery of the Spine
DX: M48.062 Spinal stenosis, lumbar region with neurogenic claudication (principal); Z98.1 Arthrodesis status; M51.369 Other intervertebral disc degeneration, lumbar region without mention of lumbar back pain or lower extremity pain; M47.816 Spondylosis without myelopathy or radiculopathy, lumbar region; M51.379 Other intervertebral disc degeneration, lumbosacral region without mention of lumbar back pain or lower extremity pain; M47.817 Spondylosis without myelopathy or radiculopathy, lumbosacral region; E88.2 Lipomatosis, not elsewhere classified
CPT/HCPCS: 72148

== ENCOUNTER → 2025-01-11 13:22 | Outpatient (CLI) | payer MEDICARE, BC, SELFPAY ==
[2025-01-11 13:48] LABS: Hematocrit 40.7 % (36-46); Hemoglobin 13.7 g/dL (12.0-16.0); Mean Corpuscular HGB Conc 33.7 % (30-36); Mean Corpuscular Hemoglobin 32.6 PG (26-34); Mean Corpuscular Volume 96.7 fL (80-100); Platelet Count 275 X10^3/uL (150-400); Red Blood Cell Count 4.21 X10^6/uL (4.0-5.2); Red Cell Distribution Width 13.9 % (11.6-14.8); White Blood Cell Count 7.1 X10^3/uL (4.5-11.0)
[2025-01-11 14:15] LABS: BUN Creatinine Ratio 19.3 (6-22); Blood Urea Nitrogen 17 mg/dL (7-17); Calcium 9.6 mg/dL (8.4-10.2); Carbon Dioxide 28 mmol/L (22-32); Chloride 102 mmol/L (98-107); Estimated Glomerular Filt Rate > 60 mL/min (>60); Glucose 102 mg/dL (70-99); HEMOLYSIS 29 (0-50); Potassium 4.5 mmol/L (3.4-5.1); Sodium 138 mmol/L (137-145)
== END ==
PROVIDERS: Family Provider Internal Medicine; PCP Family Medicine; Referring Provider Orthopaedic Surgery Orthopaedic Surgery of the Spine; Visit Provider Orthopaedic Surgery Orthopaedic Surgery of the Spine
DX: M54.16 Radiculopathy, lumbar region (principal); M48.062 Spinal stenosis, lumbar region with neurogenic claudication
CPT/HCPCS: 36415; 80048; 85027

== ENCOUNTER → 2025-04-15 10:31 | Outpatient (CLI) | payer MEDICARE, BC, SELFPAY ==
--- NOTE | 2025-04-15 10:34 | DI.MRI.S_ITS ---
PROCEDURE: MR LUMBAR SPINE WO CON INDICATIONS: Spinal stenosis TECHNIQUE: Noncontrast sagittal T1 spin echo and T2 fast echo, sagittal STIR, and axial T2 fast spin echo through the lumbar spine. Patient refused intravenous contrast administration. COMPARISON: [facility], , MR LUMBAR SPINE WO CON, 01/05/2025, 11:54. FINDINGS: Image quality: Excellent. Alignment and Curvature: Unchanged mild grade 1 anterolisthesis of L4 on L5. Trace retrolisthesis of L3 on L4 is also unchanged. Bone Marrow: Chronic postsurgical changes are seen at the L4-5 level with bilateral pedicle screws and interbody rods as well as a disc spacer. There is solid osseous fusion across the disc space. Interval postsurgical changes are also noted at the L3-4 level with removal of the posterior elements and no additional fixation hardware. Endplate edema is seen surrounding the L3-4 disc space, likely related to Modic type 1 degenerative endplate edema and similar when compared to the MRI from 01/05/2025. No acute vertebral body compression fractures. Spinal Cord: Conus medullaris terminates at the L1 level. Visualized cord demonstrates normal signal and size. Paraspinous Soft Tissues: No paravertebral masses. Postsurgical changes are seen in the posterior soft tissues including edema and small nonspecific fluid collections. T12-L1: No significant spinal canal stenosis or neural foraminal narrowing. L1-L2: Disc desiccation and mild facet hypertrophy without significant spinal canal stenosis or neural foraminal narrowing. Findings do not appear significantly changed when compared to the MRI from 01/05/2025. L2-L3: Disc desiccation and mild circumferential disc bulging as well as mild bilateral facet hypertrophy, buckling of the ligamentum flavum, and epidural lipomatosis. Findings result in moderate narrowing of the spinal canal as well as [id number] right and mild left neural foraminal narrowing. Findings do not appear significantly changed given differences in imaging technique. L3-L4: Postsurgical changes with decompression of the central spinal canal. There is residual circumferential disc bulging and left paracentral to foraminal disc extrusion as well as at least moderate bilateral facet hypertrophy that result in mild right and at least moderate left neural foraminal narrowing. L4-L5: Postsurgical changes with decompression of the central spinal canal. Facet joints appear partially fused. Mild bilateral neural foraminal narrowing. Findings do not appear significantly changed. L5-S1: Disc desiccation and mild circumferential disc bulging as well as moderate bilateral facet hypertrophy. Findings result in moderate right and mild left neural foraminal narrowing without significant spinal canal stenosis. Findings do not appear significantly changed. IMPRESSION: 1. Interval postsurgical changes at the L3-4 level with removal of the posterior elements. Residual disc bulging and left paracentral to foraminal disc extrusion are seen that result in at least moderate left and mild right neural foraminal narrowing without central canal stenosis. 2. Remote postsurgical changes at the L4-5 level with decompression of the spinal canal. 3. Additional multilevel degenerative disc disease and facet hypertrophy as described in the body of the report that do not appear significantly changed when compared to the MRI from 01/05/2025. Approved by: Clinton Orellana M.D. on 04/16/2025 at 13:41
== END ==
PROVIDERS: Family Provider Family Medicine; PCP Family Medicine; Referring Provider Orthopaedic Surgery Orthopaedic Surgery of the Spine; Visit Provider Orthopaedic Surgery Orthopaedic Surgery of the Spine
DX: M48.062 Spinal stenosis, lumbar region with neurogenic claudication (principal); M47.816 Spondylosis without myelopathy or radiculopathy, lumbar region; M51.369 Other intervertebral disc degeneration, lumbar region without mention of lumbar back pain or lower extremity pain; M51.26 Other intervertebral disc displacement, lumbar region; M51.379 Other intervertebral disc degeneration, lumbosacral region without mention of lumbar back pain or lower extremity pain; M47.817 Spondylosis without myelopathy or radiculopathy, lumbosacral region; M48.07 Spinal stenosis, lumbosacral region; Z98.1 Arthrodesis status; Z98.890 Other specified postprocedural states
CPT/HCPCS: 72148

== ENCOUNTER 2025-07-04 13:45 | Outpatient (RCR) | payer MEDICARE, BC, SELFPAY ==
--- NOTE | 2025-04-17 17:00 | PT.OPPOC ---
Physical, Occupational & Speech Therapy At [facility] Current Diagnoses Other shoulder lesions, right shoulder (04/25/25) Other specified postprocedural states (04/25/25) Visit Care Team Role Provider Type Odalys Jessica DO Family Provider Physician Primary Care Provider Specialty: Family Practice Address: [address] [place] [address], [address], [place], [address] Email: [email or web address] Jack Cole DO Attending Provider Non-Staff Referring Provider Specialty: Orthopedic Surgery Address: [address] [place] [address] , [place], [address] Email: Plan Of Care PT-OP-A Visit Information Start: 04/17/25 12:48 Freq: Status: Active Protocol: Document 04/17/25 13:11 AMPOULE FILLER (Rec: 04/17/25 13:51 AMPOULE FILLER Laptop) Out-Patient Physical Therapy Visit Information Visit Information Visit Type Initial Evaluation Visit Start Time 13:06 Visit Stop Time 13:50 Visit Number 1 Number of TRAVEL AGENCY MANAGER Visits 0 Evaluation Information Evaluation Date 04/17/25 PT-OP-B Current Condition Start: 04/17/25 12:48 Freq: Status: Active Protocol: Document 04/17/25 13:11 AMPOULE FILLER (Rec: 04/17/25 13:51 AMPOULE FILLER Laptop) Current Condition History of Current Condition Onset Date 02/14/25- L3-L4 laminectomy Current Complaints low back pain post op and R shoulder pain since operation History of Current Pt comes to PT s/p L3-L4 laminectomy on 02/14/25. She Condition reports since surgery pain has improved significantly but still has pain in low back when standing for long. Pain radiates down front of L leg to knee. Pain is not constant in low back but sometimes gets high enough to make her cry. Takes tylenol and oxycodone which she is very careful with taking only when needed. 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 Has had pain and difficulty lifting things with R UE since her surgery, thinks it may be from positioning during surgery. She normally sleeps on R side and has difficulty sleeping d/t R shoulder pain and L low back pain. Prior Treatments and H/o lateral interbody fusion at L4-5 in 2014 Tests Treatment Goals Patient/Caregiver To be able to get back to gardening. Goals PT-OP-C Subjective Start: 04/17/25 12:48 Freq: Status: Active Protocol: Document 04/17/25 13:11 AMPOULE FILLER (Rec: 04/25/25 12:59 AMPOULE FILLER Laptop) Patient Questionnaires Oswestry Low Back Index Oswestry Score 28/50 56% Oswestry Impairment 40 to 59% Impaired (Score 40-59) Quick Dash- Upper Extremity Quick Dash UE Score 43% PT-OP-H Neuro Start: 04/17/25 12:48 Freq: Status: Active Protocol: Document 04/17/25 13:11 AMPOULE FILLER (Rec: 04/17/25 13:51 AMPOULE FILLER Laptop) Sensation Evaluation Comments Summary Comments Pt reports Tingling and burning to LLE down ant thigh to below patella PT-OP-K Range of Motion Start: 04/17/25 12:48 Freq: Status: Active Protocol: Document 04/17/25 13:11 AMPOULE FILLER (Rec: 04/17/25 13:51 AMPOULE FILLER Laptop) Shoulder Goniometric Range of Motion Shoulder Measured in Degrees R Shoulder ROM WFL No Testing Position Sitting Flexion 90 Extension 58 Abduction 65 Internal Rotation T9 Behind Back (text) Comments significant pain with abd, pain with ER but able to reach back of head PT-OP-M Strength Start: 04/17/25 12:48 Freq: Status: Active Protocol: Document 04/17/25 13:11 AMPOULE FILLER (Rec: 04/17/25 13:51 AMPOULE FILLER Laptop) Shoulder Strength Shoulder Manual Muscle Testing R Flexion 4 Good Extension 4+ Good+ Abduction (C5) 4- Good- External Rotation 4 Good Internal Rotation 5 Normal Elbow/Forearm Strength Elbow and Forearm Manual Muscle Testing R Flexion (C6) 4+ Good+ Extension (C7) 4+ Good+ Hip Strength Hip Manual Muscle Testing L Flexion (L2) 4 Good Abduction 4 Good Adduction 4 Good R Flexion (L2) 3+ Fair+ Abduction 4- Good- Adduction 4 Good Comments pain with resisted R hip flex Knee Strength Knee Manual Muscle Testing L Flexion (S2) 3 Fair Extension (L3) 4+ Good+ R Flexion (S2) 4 Good Extension (L3) 4- Good- Comments R knee flex gave out after resistance for ~3 secs Ankle/Foot Strength Ankle and Foot Manual Muscle Testing L Dorsiflexion (L4) 3- Fair- R Dorsiflexion (L4) 4 Good PT-OP-T Assessment and Plan Start: 04/17/25 12:48 Freq: Status: Active Protocol: Document 04/17/25 13:11 AMPOULE FILLER (Rec: 04/17/25 13:51 AMPOULE FILLER Laptop) Physical Therapy Assessment Rehab Potential Rehabilitation Good Potential Evaluation Complexity Number of Personal 3 or More Factors/ Comorbidities Number of Body 3 Systems Impaired Clinical Evolving Presentation at Evaluation Impairments Impairments Activity Tolerance,Balance,Functional Activities, Functional Mobility,Gait,Pain,Posture,ROM,Sensation, Soft Tissue Mobility,Strength Goals 3 Impairment BLE strength Impairment R hip flex 3+, R hip abd 4- R knee ext 4- L knee flex 3 L DF 3- Short Term Goal (STG Pt will improve BLE strength by 2 MMT points in order ) to improve stability and functional mobility. STG Duration 05/30/25 Tax Representative Goal (LTG) Pt will demonstrate at least 10 in 30s STS test without UEs from 17 chair in order to demonstrate improved functional mobility for age range. LTG Duration 07/11/25 2 Impairment RUE Strength Impairment On eval: R shoulder flex 4, ER 4, abd 4- Tax Representative Goal (LTG) Pt will demonstrate improved strength of RUE to achieve at least 4+/5 of shoulder flex, ER, and abd with pain at 2/10 or less in order to improve function. LTG Duration 07/11/25 1 Impairment RUE ROM Impairment On eval: R shoulder flex 90 degrees, abd 65 degrees, pain with ER touching back of head and with abd Usp Goal (LTG) Pt will demonstrate improved AROM of RUE to achieve at least 130 degrees of shoulder flex and abd with pain at 2/10 or less in order to improve function. LTG Duration 07/11/25 Assessment Summary Assessment Pt presents s/p L3-L4 laminectomy on 02/14 with pain radiating to L knee and weakness in B hips, knees, and L DF and with pain in R shoulder which significantly limits her shoulder strength and AROM. Pt is limited with pain and endurance in standing activities and standing up from sitting position. Pt will benefit from skilled PT intervention to address deficits and meet goals of improved functional mobility. Physical Therapy Plan Frequency and Duration Frequency of 2x/Week Treatment Duration of 12 treatment (weeks) Plan of Care Start 04/17/25 Plan of Care End 07/11/25 Date Therapeutic Interventions Therapeutic Balance Training,Gait Training,Home Exercise Program, Interventions Joint Mobilizations,Manual Therapy,Neuromuscular Re- education,Patient/Caregiver Education,Soft Tissue Mobilization,Taping,Therapeutic Activities,Therapeutic Exercises Modalities Cold Pack/Ice Massage,Hot Packs,Iontophoresis Next Visit Focus/Plan Next Note Type Treatment Note Next Visit Plan LLE neuro flossing, gentle supine hip HEP and core strengthening with HEP Plan of Care Dates Plan of Care Start Date 04/17/25 Plan of Care End Date 07/11/25 Electronically Signed by: Rachel Madera, PT 04/25/25 1300 If you are in agreement with this Plan of Care, please return a signed and dated copy. I have reviewed this Plan of Care and certify that the skilled therapy services above are required to meet the patient?s needs. Physician Signature Date Printed Name and Credentials Clinical Instructor Signature Printed Name and Credentials
--- NOTE | 2025-04-25 19:25 | PT.OTN ---
Current Diagnoses Other shoulder lesions, right shoulder (04/25/25) Other specified postprocedural states (04/25/25) Physical Therapy Treatment Note PT OP: Full Body Start: 04/25/25 13:06 Freq: Status: Active Protocol: Document 04/25/25 13:06 SALVAGE WINDER AND INSPECTOR (Rec: 04/25/25 13:51 SALVAGE WINDER AND INSPECTOR Laptop) Out-Patient Physical Therapy Visit Information Visit Information Visit Type Treatment Note Visit Start Time 13:05 Visit Stop Time 13:48 Visit Number 2 Number of FIELD KILN BURNER Visits 0 OP-PT Subjective Patient Comments Patient Comments Pt reports she started a new medication for nerve pain which helps a lot and pain is currently lower at 3-4/10 in low back and R shoulder but has not done too much today. Medication makes her dizzy so she doesn't take during the day. Therapeutic Exercises Supine Exercises DKTC Side bilateral Reps/Minutes 1 min x2 Comments positive results during and after Clamshells Side bilateral Reps/Minutes x10 Comments slight pain in L hip with full ROM, VC for pain free range, added to HEP Bridges Side bilateral Reps/Minutes x10 Comments unable to fully lift, significant holding breath, not added to HEP Gute sets Side bilateral Reps/Minutes x15 Comments added to HEP with HO Heel slides Side bilateral Reps/Minutes x15 Comments too easy, not added to HEP Hip Abd Supine Exercise Name Socks on for low resistance Side bilateral Reps/Minutes x10, 10x2 L improved pain on second set after distraction Comments Added to HEP with HO Prone Exercises Child's pose Prone Exercise Name Pt demonstrated what she has been doing for lumbar stretch Side bilateral Reps/Minutes 30s Comments explained difference between child's pose and DKTC Manual Therapy Treatment Consent Patient gave verbal Yes consent for manual treatment Joint Mobilizations Distraction Joint B hip Direction longitudinal Grade IV Body Position Supine Reps/Duration 2 mins each Comments very good response with decreased pain Physical Therapy Assessment Goals 3 Impairment BLE strength Impairment R hip flex 3+, R hip abd 4- R knee ext 4- L knee flex 3 L DF 3- Short Term Goal (STG Pt will improve BLE strength by 2 MMT points in order ) to improve stability and functional mobility. STG Duration 05/30/25 Improvement Advisor Goal (LTG) Pt will demonstrate at least 10 in 30s STS test without UEs from 17 chair in order to demonstrate improved functional mobility for age range. LTG Duration 07/11/25 2 Impairment RUE Strength Impairment On eval: R shoulder flex 4, ER 4, abd 4- Improvement Advisor Goal (LTG) Pt will demonstrate improved strength of RUE to achieve at least 4+/5 of shoulder flex, ER, and abd with pain at 2/10 or less in order to improve function. LTG Duration 07/11/25 1 Impairment RUE ROM Impairment On eval: R shoulder flex 90 degrees, abd 65 degrees, pain with ER touching back of head and with abd Improvement Advisor Goal (LTG) Pt will demonstrate improved AROM of RUE to achieve at least 130 degrees of shoulder flex and abd with pain at 2/10 or less in order to improve function. LTG Duration 07/11/25 Assessment Summary Assessment Tolerated distraction very well, many VC for decreased speed and range during all exercises Physical Therapy Plan Frequency and Duration Frequency of 2x/Week Treatment Duration of 12 treatment (weeks) Plan of Care Start 04/17/25 Date Plan of Care End 07/11/25 Date Therapeutic Interventions Therapeutic Balance Training,Gait Training,Home Exercise Program, Interventions Joint Mobilizations,Manual Therapy,Neuromuscular Re- education,Patient/Caregiver Education,Soft Tissue Mobilization,Taping,Therapeutic Activities,Therapeutic Exercises Modalities Cold Pack/Ice Massage,Hot Packs,Iontophoresis Next Visit Focus/Plan Next Note Type Treatment Note Next Visit Plan core strengthening/PPT, LLE neuro flossing
--- NOTE | 2025-04-27 16:27 | PT.OTN ---
Current Diagnoses Other shoulder lesions, right shoulder (04/27/25) Other specified postprocedural states (04/27/25) Physical Therapy Treatment Note PT OP: Full Body Start: 04/25/25 13:06 Freq: Status: Active Protocol: Document 04/27/25 15:19 MURAL ARTIST (Rec: 04/27/25 16:27 MURAL ARTIST Laptop) Out-Patient Physical Therapy Visit Information Visit Information Visit Type Treatment Note Visit Start Time 15:19 Visit Stop Time 16:05 Visit Number 3 Number of CORE INSERTER Visits 0 Progress Note Due 05/25/25 OP-PT Subjective Patient Comments Patient Comments Pt reports increased pain to R low back from picking and drying onions which includes bending and twisting. Current pain is 3-4/10. Cardio Equipment Recumbent Elliptical (NuStep) Duration (Minutes) 5 Resistance L1 Seat Position 8 Other slight increased pain in back Therapeutic Exercises Supine Exercises PPT Reps/Minutes x10 Comments minimal VC needed Manual Therapy Treatment Consent Patient gave verbal Yes consent for manual treatment Soft Tissue Mobilization lumbar Body Location sidelying Mobilization Type Rolling Intensity/Depth Superficial>moderate Body Position Sidelying Comments only tolerated superficial, improved tolerance to moderate after ice pack for 5 mins hip Body Location R glute, ITB Mobilization Type Myofascial Release Intensity/Depth Superficial Body Position Sidelying Joint Mobilizations Distraction Joint B hip Direction longitudinal Grade IV Body Position Supine Reps/Duration 2 mins each Comments very good response with decreased pain Physical Therapy Assessment Goals 3 Impairment BLE strength Impairment R hip flex 3+, R hip abd 4- R knee ext 4- L knee flex 3 L DF 3- Short Term Goal (STG Pt will improve BLE strength by 2 MMT points in order ) to improve stability and functional mobility. STG Duration 05/30/25 Bucket Wash Operator Goal (LTG) Pt will demonstrate at least 10 in 30s STS test without UEs from 17 chair in order to demonstrate improved functional mobility for age range. LTG Duration 07/11/25 2 Impairment RUE Strength Impairment On eval: R shoulder flex 4, ER 4, abd 4- Penitentiary Goal (LTG) Pt will demonstrate improved strength of RUE to achieve at least 4+/5 of shoulder flex, ER, and abd with pain at 2/10 or less in order to improve function. LTG Duration 07/11/25 1 Impairment RUE ROM Impairment On eval: R shoulder flex 90 degrees, abd 65 degrees, pain with ER touching back of head and with abd Penitentiary Goal (LTG) Pt will demonstrate improved AROM of RUE to achieve at least 130 degrees of shoulder flex and abd with pain at 2/10 or less in order to improve function. LTG Duration 07/11/25 Assessment Summary Assessment This session focused on reducing lumbar pain with B hip traction, ice pack, gentle STM to lumbar and R hip, and gentle core activation however pt with increased pain walking out of session, up to 5-6/10 and unsure if PPTs or hip traction. Physical Therapy Plan Frequency and Duration Frequency of 2x/Week Treatment Duration of 12 treatment (weeks) Plan of Care Start 04/17/25 Date Plan of Care End 07/11/25 Date Next Visit Focus/Plan Next Note Type Treatment Note Next Visit Plan LLE neuro flossing, review PPT, pause B hip traction next session to find cause of pain
--- NOTE | 2025-05-01 16:55 | PT.OTN ---
Current Diagnoses Other shoulder lesions, right shoulder (05/01/25) Other specified postprocedural states (05/01/25) Physical Therapy Treatment Note PT OP: Full Body Start: 04/25/25 13:06 Freq: Status: Active Protocol: Document 05/01/25 13:18 NBM (Rec: 05/01/25 14:32 NBM Laptop) Out-Patient Physical Therapy Visit Information Visit Information Visit Type Treatment Note Visit Start Time 13:07 Visit Stop Time 13:57 Visit Number 4 Number of INSTRUCTOR BRIDGE Visits 1 Progress Note Due 05/25/25 Evaluation Information Evaluation Date 04/17/25 OP-PT Subjective Patient Comments Patient Comments Maame reports her R shoulder is hurting more than her back today and the pain from both woke her up despite sleeping medication; she ended up taking Tylenol and Oxycodone to fall back to sleep, and is tired today. New nerve pain medication seems to be helping but it makes her tired so she can only use it at night instead of the prescribed twice a day, and told her doctor and is waiting to hear back. Pt reports she has a herniated disc in cervical spine but may have forgotten to mention to Physical Therapist, possibly at C3-C4 but she's not sure. She also had two surgeries from chest to abdomen due to sepsis and related spleen removal several years ago, and has slept with small pillow to chest since. Therapeutic Exercises Supine Exercises PPT Supine Exercise Name added to HEP Equipment Used edu w/ visual aids for TrA and self-monitoring medial to ASIS Reps/Minutes x10 with breathwork Comments initial tactiles cues, challenged to maintain wo breath holding, improves Clamshells Side bilateral Reps/Minutes x10 Comments verbal review d/t time to do w/ TrA focus wo breath holding in painfree ROM Gute sets Side bilateral Reps/Minutes x15 Comments added to HEP with HO Heel slides Side bilateral Reps/Minutes x15 Comments verbal review d/t time to do w/ TrA focus wo breath holding in painfree ROM Therapeutic Activity Therapeutic Activity Bed Mobility Comments Pt demos twisting motion with breath holding and pain sitting edge of bed<> supine and sit<> stand. Pt edu for TrA m. activation with breath for positional changes, i/s in log roll method, demos improved form end of session and reports reduced pain. Sleeping Ergonomics Comments Pt demos L sidelying w/ scapular elevation and R>L shoulder protraction, pillow supports between LEs, describes small older pillow hugged to chest. -Pt i/s in L sidelying with cervical and spinal alignment with focus on scapular setting and standard pillow support to chest under R axilla. Discussion to consider small support under L side and larger pillow hugged to chest to avoid scapular elevation/protraction . Sleeping ergonomics HO given. Manual Therapy Treatment Consent Patient gave verbal Yes consent for manual treatment Soft Tissue Mobilization shoulder Body Location R>L UT, LS, R Rhomb, Supraspinatus, Deltoid, Pec, short head Biceps brachii Mobilization Type Cross-Friction,Rolling,Strumming,Sustained Pressure, Trigger Point Release Body Position supine, sidelying Comments w/ breathwork. pillow supports in sidelying for alignment and R jayme support lumbar Body Location sidelying Mobilization Type Rolling Intensity/Depth Superficial>moderate Body Position Sidelying Comments manual stretch to R QL, monitored for pain- positive feedback response Self-Care/Home Management Treatment Education Other Education -Edu: Pain neuroscience and diaphragmatic breathing for pain dampening and reducing pain guarding via Parasympathetic NS activation. -I/s: self-monitoring TrA m. activation wo breathholding w/ visual aids for TrA m. anatomy and interrelationship with diaphragm and pelvic floor and importance not to hold breath with HEP and positional changes. -HEP review w/ emphasis on maintaining painfree range. Physical Therapy Assessment Goals 3 Impairment BLE strength Impairment R hip flex 3+, R hip abd 4- R knee ext 4- L knee flex 3 L DF 3- Short Term Goal (STG Pt will improve BLE strength by 2 MMT points in order ) to improve stability and functional mobility. STG Duration 05/30/25 Skilled Nursing Goal (LTG) Pt will demonstrate at least 10 in 30s STS test without UEs from 17 chair in order to demonstrate improved functional mobility for age range. LTG Duration 07/11/25 2 Impairment RUE Strength Impairment On eval: R shoulder flex 4, ER 4, abd 4- Skilled Nursing Goal (LTG) Pt will demonstrate improved strength of RUE to achieve at least 4+/5 of shoulder flex, ER, and abd with pain at 2/10 or less in order to improve function. LTG Duration 07/11/25 1 Impairment RUE ROM Impairment On eval: R shoulder flex 90 degrees, abd 65 degrees, pain with ER touching back of head and with abd Skilled Nursing Goal (LTG) Pt will demonstrate improved AROM of RUE to achieve at least 130 degrees of shoulder flex and abd with pain at 2/10 or less in order to improve function. LTG Duration 07/11/25 Assessment Summary Assessment Maame presents with 4/10 pain, shoulder more than low back, which improves to 2/10 pain end of session, most noticeably in shoulder. Significant treatment focus on education with emphasis on Transverse abdominis m. activation without breathholding, and incorporating education into HEP and positional changes such as supine to sitting edge of bed. Handout given for sleeping ergonomics in sidelying w/ instruction for pt to use larger pillow in front for R shoulder pain and scapular setting. Pt demos improved self-awareness with self-correction for TrA recruitment without breath holding compensation by end of session and good ability to perform diaphragmatic breathing. Physical Therapy Plan Frequency and Duration Frequency of 2x/Week Treatment Duration of 12 treatment (weeks) Plan of Care Start 04/17/25 Date Plan of Care End 07/11/25 Date Next Visit Focus/Plan Next Note Type Treatment Note Next Visit Plan Next: Consider shoulder vs hip focus. Check response to treatment and education (sleeping ergonomics, diaphragmatic breathing, TrA activation wo breath holding). POC: LLE neuro flossing, review PPT, pause B hip traction next session to find cause of pain
--- NOTE | 2025-05-03 19:37 | PT.OTN ---
Current Diagnoses Other shoulder lesions, right shoulder (05/03/25) Other specified postprocedural states (05/03/25) Physical Therapy Treatment Note PT OP: Full Body Start: 04/25/25 13:06 Freq: Status: Active Protocol: Document 05/03/25 13:48 DEVELOPER DESIGNER (Rec: 05/03/25 14:37 DEVELOPER DESIGNER Laptop) Out-Patient Physical Therapy Visit Information Visit Information Visit Type Treatment Note Visit Start Time 13:48 Visit Stop Time 14:31 Visit Number 5 Number of SKID WORKER Visits 0 Progress Note Due 05/25/25 OP-PT Subjective Patient Comments Patient Comments Pt reports her R shoulder felt much better after last therapy session and overall back pain has reduced from B whole low back to centralized to sacrum area. Therapeutic Exercises Supine Exercises Clamshells Side bilateral Reps/Minutes 10x2 each side Comments TC at post hip to prevent roll back Sidelying Exercises Clamshell Sidelying Exercise not yet added to HEP d/t increased cues Name Side bilateral Resistance gravity Reps/Minutes 10x2 each side Comments mod VC/TC to prevent hip roll back Manual Therapy Treatment Consent Patient gave verbal Yes consent for manual treatment Soft Tissue Mobilization neck Body Location B suboccipitals, UT stretch Mobilization Type Trigger Point Release Body Position Supine Comments manual UT stretch 30sx2 shoulder Body Location R upper and mid trap, supraspinatus, LS, rhomboid, pec Mobilization Type Myofascial Release,Rolling,Trigger Point Release Body Position supine, sitting Physical Therapy Assessment Impairments Impairments Activity Tolerance,Balance,Functional Activities, Functional Mobility,Gait,Pain,Posture,ROM,Sensation, Soft Tissue Mobility,Strength Goals 3 Impairment BLE strength Impairment R hip flex 3+, R hip abd 4- R knee ext 4- L knee flex 3 L DF 3- Short Term Goal (STG Pt will improve BLE strength by 2 MMT points in order ) to improve stability and functional mobility. STG Duration 05/30/25 Head Of Mobile Goal (LTG) Pt will demonstrate at least 10 in 30s STS test without UEs from 17 chair in order to demonstrate improved functional mobility for age range. LTG Duration 07/11/25 2 Impairment RUE Strength Impairment On eval: R shoulder flex 4, ER 4, abd 4- Head Of Mobile Goal (LTG) Pt will demonstrate improved strength of RUE to achieve at least 4+/5 of shoulder flex, ER, and abd with pain at 2/10 or less in order to improve function. LTG Duration 07/11/25 1 Impairment RUE ROM Impairment On eval: R shoulder flex 90 degrees, abd 65 degrees, pain with ER touching back of head and with abd Head Of Mobile Goal (LTG) Pt will demonstrate improved AROM of RUE to achieve at least 130 degrees of shoulder flex and abd with pain at 2/10 or less in order to improve function. LTG Duration 07/11/25 Assessment Summary Assessment Focus this session was on STM and to R cervical and shoulder muscles with significant trigger points noted but with good response. Physical Therapy Plan Frequency and Duration Frequency of 2x/Week Treatment Duration of 12 treatment (weeks) Plan of Care Start 04/17/25 Date Plan of Care End 07/11/25 Date Therapeutic Interventions Therapeutic Balance Training,Gait Training,Home Exercise Program, Interventions Joint Mobilizations,Manual Therapy,Neuromuscular Re- education,Patient/Caregiver Education,Soft Tissue Mobilization,Taping,Therapeutic Activities,Therapeutic Exercises Modalities Cold Pack/Ice Massage,Hot Packs,Iontophoresis Next Visit Focus/Plan Next Note Type Treatment Note Next Visit Plan Review sidelying clamshells and add to HEP if performed without cues, seated UT and LS stretches
--- NOTE | 2025-05-09 15:36 | PT.OTN ---
Current Diagnoses Other shoulder lesions, right shoulder (05/09/25) Other specified postprocedural states (05/09/25) Physical Therapy Treatment Note PT OP: Full Body Start: 04/25/25 13:06 Freq: Status: Active Protocol: Document 05/09/25 13:55 NBM (Rec: 05/09/25 15:35 NBM Laptop) Out-Patient Physical Therapy Visit Information Visit Information Visit Type Treatment Note Visit Start Time 13:55 Visit Stop Time 14:50 Visit Number 6 Number of CARBOY FILLER Visits 1 Progress Note Due 05/25/25 Evaluation Information Evaluation Date 04/17/25 OP-PT Subjective Patient Comments Patient Comments Maame reports the pain is in her low back around sacrum but when she presses both fists against low back and sits up the pain goes away. 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 This morning she was also standing a while watering plants so is probably sore from that too; she did it with a back brace just in case. She doesn't want to do gardening any more because it's challenging to keep a vegetable garden and she's fine with just doing onions, and it's harder and harder to get up off of ground without pushing up off knee. Therapeutic Exercises Supine Exercises PPT Supine Exercise Name HEP Equipment Used edu w/ visual aids for TrA and self-monitoring medial to ASIS Reps/Minutes x10 with breathwork Comments initial tactiles cues, improves low back pain Sitting Exercises cervical stretches Sitting Exercise chin tuck: 1. UT 2. LS 3. Scalenes Name Side bilateral Equipment Used w/ and wo shoulder stabilization - rec hands in lap Comments R>L tighttess. cues gentle, painfree range only. added to HEP. Chin tuck Equipment Used w/ edu for posture and UT/LS m. anatomy Reps/Minutes x10 Standing Exercises STS Standing Exercise sit to stand - added to HEP Name Equipment Used standard mesh chair Reps/Minutes x10 Comments knee valgus improves w/ cues for LE alignment, hip hinge, TrA, breath Therapeutic Activity Therapeutic Activity Body Mechanics Name Watering garden with hose and using back brace. Comments Pt i/s in scapular setting w/ chin tuck, using both arms and elbows at sides, facing work with hose. Edu to pt how TrA serves as back brace and to be intentional w/ TrA activation in standing. Squatting/Lifting Mechanics Name Pt demos lifting wooden board from floor. Comments -I/s pt in standing closer to object with wider MOI, bending more at knee with hip hinge, and TrA activation w/ breath - pt demos improved control and stability with less strain to back and reports improved comfort. Manual Therapy Treatment Consent Patient gave verbal Yes consent for manual treatment Soft Tissue Mobilization neck Body Location B suboccipitals Mobilization Type Trigger Point Release Body Position Supine Comments manual UT stretch 30sx2 shoulder Body Location R>L UT, R MT, supraspin, LS, pec, long head insertion Biceps, SCM Mobilization Type Myofascial Release,Rolling,Trigger Point Release Body Position Supine Comments w/ breathwork. Joint Mobilizations GH jt Joint R glenohumeral jt Direction inferior, posterior Grade II Body Position Hooklying Reps/Duration 1 min Comments positive feedback response Self-Care/Home Management Treatment Education Patient Education Body Mechanics,Home Exercise Program,Pain Management, Posture Other Education -Edu re: cervical alignment/posture with propped reading in bed. Edu for bone growth in direction of force from muscle attachments and importance of stretching to improve muscle tightness. Added to HEP: cervical stretches (UT, LS, Scalenes) - HO given. -Discussion ice for pain management vs ice/heat contrast. -HEP: added STS (during commercials) x10 daily w/ LE alignment and TrA activation w/ breath. PPTs in sitting /supine as needed for pain management. -Emphasis on use of posture and TrA activation for ADLs and with HEP. Physical Therapy Assessment Goals 3 Impairment BLE strength Impairment R hip flex 3+, R hip abd 4- R knee ext 4- L knee flex 3 L DF 3- Short Term Goal (STG Pt will improve BLE strength by 2 MMT points in order ) to improve stability and functional mobility. STG Duration 05/30/25 Leather Stretcher Goal (LTG) Pt will demonstrate at least 10 in 30s STS test without UEs from 17 chair in order to demonstrate improved functional mobility for age range. LTG Duration 07/11/25 2 Impairment RUE Strength Impairment On eval: R shoulder flex 4, ER 4, abd 4- Detention Goal (LTG) Pt will demonstrate improved strength of RUE to achieve at least 4+/5 of shoulder flex, ER, and abd with pain at 2/10 or less in order to improve function. LTG Duration 07/11/25 1 Impairment RUE ROM Impairment On eval: R shoulder flex 90 degrees, abd 65 degrees, pain with ER touching back of head and with abd Leather Stretcher Goal (LTG) Pt will demonstrate improved AROM of RUE to achieve at least 130 degrees of shoulder flex and abd with pain at 2/10 or less in order to improve function. LTG Duration 07/11/25 Assessment Summary Assessment Treatment focus on HEP, Body mechanics and manual therapy for R shoulder pain management. Excessive knee valgus with STS improves with cues for LE alignment, hip hinge, and TrA w/ breath. Added to HEP: cervical stretches (UT, LS, Scalenes), STS - HO given. Maame is instructed in improving squatting and lifting mechanics w/ emphasis on hip hinge and TrA m. activation w/ breath. Posterior pelvic tilt improves low back pain. Palpable tension to R UT improves w/ manual therapy and pt reports no pain end of session. Physical Therapy Plan Frequency and Duration Frequency of 2x/Week Treatment Duration of 12 treatment (weeks) Plan of Care Start 04/17/25 Date Plan of Care End 07/11/25 Date Next Visit Focus/Plan Next Note Type Treatment Note Next Visit Plan Review seated UT and LS stretches, and sidelying clamshells and add to HEP if performed without cues.
--- NOTE | 2025-05-16 17:27 | PT.OTN ---
Current Diagnoses Other shoulder lesions, right shoulder (05/16/25) Other specified postprocedural states (05/16/25) Physical Therapy Treatment Note PT OP: Full Body Start: 04/25/25 13:06 Freq: Status: Active Protocol: Document 05/16/25 13:54 NBM (Rec: 05/16/25 14:41 NBM Laptop) Out-Patient Physical Therapy Visit Information Visit Information Visit Type Treatment Note Visit Start Time 13:45 Visit Stop Time 14:40 Visit Number 7 Number of HOSPICE DIRECTOR Visits 2 Progress Note Due 05/25/25 Evaluation Information Evaluation Date 04/17/25 OP-PT Subjective Patient Comments Patient Comments Maame reports R shoulder is improving and she can reach up into cupboard now, but not far into cupboard without pain. Her leg pain is improving with the nightly medicine she takes for it. She's using PT technique for picking up things from floor and it's helped so much (tucking belly in and putting hips back) . Pain the most is in kitchen with prepping food so leans hip on counter and sticks foot up. When she sits to put socks and shoes on her L leg is weaker than R and she has to help it up. Cardio Equipment Recumbent Elliptical (NuStep) Duration (Minutes) 8 Resistance L1 Seat Position 8 (7 seen) Other LEs only Therapeutic Exercises Sitting Exercises Piriformis stretch Sitting Exercise Fig. 4: trialed w/ overpressure at knee and knee to opp Name shoulder Side bilateral Reps/Minutes 30s each w/ breath Comments Added to HEP with gentle overpressure for R only. L>R weakness. PPT Sitting Exercise to relieve low back pain prn - added to HEP Name Equipment Used tactile cueing from back of mesh chair Reps/Minutes 2x10 Comments pain resolves, positive feedback response cervical stretches Sitting Exercise HEP review: chin tuck: 1. UT 2. LS 3. Scalenes Name Side bilateral Equipment Used w/ and wo shoulder stabilization Comments R>L tightness. Pt moves quickly through pain. Cues slow , gentle, painfree. Standing Exercises STS Standing Exercise sit to stand - HEP review Name Equipment Used standard mesh chair Reps/Minutes x3, x10 w/ gluteal squeeze and LE alignment Comments Good TA, hip hinge. Cues LE alignment R>L, breath, gluteal squeeze Therapeutic Activity Therapeutic Activity Body Mechanics Name ADLs Do's/Dont's HO given. Comments 1. Standing in kitchen: Pt demos leaning R hip into counter and propping a foot up on ledge, or else leaning forward onto both elbows on counter to relieve low back pain. -Discouraged pt from R hip leaning w/ education for possible contribution to L-sided tightness, and encouraged placing foot on ledge/stool and alternating with seated prep work at dining table as able. 2. L>R LE weakness obtaining seated Fig. 4 position for donning/doffing pants, socks/shoes. -Pt i/s in seated B Fig. 4 stretch with emphasis on painfree range and breath - added to HEP at least twice daily at least 30s each. Self-Care/Home Management Treatment Activities Self-Care/Home I/s in self-STM w/ tennis ball seated in chair and Management against wall; and seated gentle Thera cane for R-sided Activities thoracic trigger points. Physical Therapy Assessment Goals 3 Impairment BLE strength Impairment R hip flex 3+, R hip abd 4- R knee ext 4- L knee flex 3 L DF 3- Short Term Goal (STG Pt will improve BLE strength by 2 MMT points in order ) to improve stability and functional mobility. STG Duration 05/30/25 Test Desk Supervisor Goal (LTG) Pt will demonstrate at least 10 in 30s STS test without UEs from 17 chair in order to demonstrate improved functional mobility for age range. LTG Duration 07/11/25 2 Impairment RUE Strength Impairment On eval: R shoulder flex 4, ER 4, abd 4- Test Desk Supervisor Goal (LTG) Pt will demonstrate improved strength of RUE to achieve at least 4+/5 of shoulder flex, ER, and abd with pain at 2/10 or less in order to improve function. LTG Duration 07/11/25 1 Impairment RUE ROM Impairment On eval: R shoulder flex 90 degrees, abd 65 degrees, pain with ER touching back of head and with abd Test Desk Supervisor Goal (LTG) Pt will demonstrate improved AROM of RUE to achieve at least 130 degrees of shoulder flex and abd with pain at 2/10 or less in order to improve function. LTG Duration 07/11/25 Assessment Summary Assessment Maame presents w/ L LE tightness which improves by end of session. R-sided thoracic pain presents following pt demo of cervical stretches with quick pacing through painful range, and resolves with posterior pelvic tilt - added to HEP. She is able to perform cervical stretches w/ cues for gentle, slow painfree range only initiated w/ chin tuck. She requires cues for Sit to Stand for LE alignment, upright posture and breath, but demos greatly improved form with these cues and repetition. Pt discouraged from leaning R hip against kitchen counter for back relief and educated on how this can contribute to L- sided back and LE tightness; edu for putting one foot on ledge instead when standing in kitchen; and seated Fig. 4 piriformis stretch added to HEP for L>R tightness affecting ability to don clothing, socks and shoes - ADLs Do's/Don'ts HO provided. Pt instructed in self-STM w/ tennis ball in sitting and at wall w/ positive feedback response. Physical Therapy Plan Frequency and Duration Frequency of 2x/Week Treatment Duration of 12 treatment (weeks) Plan of Care Start 04/17/25 Date Plan of Care End 07/11/25 Date Therapeutic Interventions Therapeutic Balance Training,Gait Training,Home Exercise Program, Interventions Joint Mobilizations,Manual Therapy,Neuromuscular Re- education,Patient/Caregiver Education,Soft Tissue Mobilization,Taping,Therapeutic Activities,Therapeutic Exercises Modalities Cold Pack/Ice Massage,Hot Packs,Iontophoresis Next Visit Focus/Plan Next Note Type Treatment Note Next Visit Plan Review seated UT and LS stretches, and sidelying clamshells and add to HEP if performed without cues.
--- NOTE | 2025-05-18 17:59 | PT.OTN ---
Current Diagnoses Other shoulder lesions, right shoulder (05/18/25) Other specified postprocedural states (05/18/25) Physical Therapy Treatment Note PT OP: Full Body Start: 04/25/25 13:06 Freq: Status: Active Protocol: Document 05/18/25 17:04 NBM (Rec: 05/18/25 17:58 NBM Laptop) Out-Patient Physical Therapy Visit Information Visit Information Visit Type Treatment Note Visit Start Time 13:52 Visit Stop Time 14:37 Visit Number 8 Number of RAT EXTERMINATOR Visits 3 Progress Note Due 05/25/25 Evaluation Information Evaluation Date 04/17/25 OP-PT Subjective Patient Comments Patient Comments Maame reports she's tried propping foot up on ledge in kitchen but it's too short for much low back relief , but she's mindful not to lean hip on counter. Using low back flattening (demos PPT) helps a lot. She's noticing her R foot points away a lot and thinks it started when it was broken. She's using the tennis ball to massage herself which helps. R shoulder's doing better. Therapeutic Exercises Supine Exercises PPT Supine Exercise Name HEP Reps/Minutes x10 with breathwork Comments improves low back pain DKTC Side bilateral Reps/Minutes 1 min x2 Comments positive results during and after Sidelying Exercises Clamshell Sidelying Exercise added to HEP Name Side bilateral Resistance gravity Reps/Minutes 10x2 each side Comments min initial VC/TC to prevent hip roll back which improves w/ reps Sitting Exercises PPT Sitting Exercise to relieve low back pain prn - HEP review Name Equipment Used tactile cues Reps/Minutes x10 Comments pain resolves, positive feedback response cervical stretches Sitting Exercise HEP review: chin tuck: 1. UT 2. LS 3. Scalenes Name Side right Equipment Used hands in lap Comments R>L tightness. Pt moves quickly through pain. Cues slow , gentle, painfree. Standing Exercises STS Standing Exercise sit to stand - HEP review Name Resistance lvl 1 Tb added above knees Equipment Used standard mesh chair Reps/Minutes x3, x10 w/ gluteal squeeze and LE alignment Comments Good TA, hip hinge, LE align; cues breath, gluteal squeeze Therapeutic Activity Therapeutic Activity Body Mechanics Comments 1. Standing in kitchen: Pt instructed w/ clinic foot stool for standing at counter 2' Squatting/Lifting Mechanics Name Picking up spilled beads from floor x 6 Comments -cues for wider MOI, slightly more knee bend; painfree Manual Therapy Treatment Consent Patient gave verbal Yes consent for manual treatment Soft Tissue Mobilization hip Body Location R glute, B ITB, HS, R calf Mobilization Type Cross-Friction,Instrument Assisted,Rolling Intensity/Depth Superficial, Moderate Body Position Supine, Sitting Comments Pt i/s in self-STM to LEs with rolling pin - positive feedback response. Nerve Glides R sciatic Comments heavy cues for gentle, slow movement Manual Techniques Stretch Type 1. B HS stretch attempted 2. Piriformis Fig. 4 3. IR 4 . ER Body Location R LE Body Position Supine Comments positive feedback for R hip ER; discomfort reported IR. Pt demos neural tension with supine HS stretch so modified to nerve glide instruction. Self-Care/Home Management Treatment Education Patient Education Home Exercise Program Other Education Progressed STS w/ Lvl 1 Tb above knees. Added sidelying clamshells to HEP - HO given. Physical Therapy Assessment Goals 3 Impairment BLE strength Impairment R hip flex 3+, R hip abd 4- R knee ext 4- L knee flex 3 L DF 3- Short Term Goal (STG Pt will improve BLE strength by 2 MMT points in order ) to improve stability and functional mobility. STG Duration 05/30/25 Counter Tacker Goal (LTG) Pt will demonstrate at least 10 in 30s STS test without UEs from 17 chair in order to demonstrate improved functional mobility for age range. LTG Duration 07/11/25 2 Impairment RUE Strength Impairment On eval: R shoulder flex 4, ER 4, abd 4- Jail Goal (LTG) Pt will demonstrate improved strength of RUE to achieve at least 4+/5 of shoulder flex, ER, and abd with pain at 2/10 or less in order to improve function. LTG Duration 07/11/25 1 Impairment RUE ROM Impairment On eval: R shoulder flex 90 degrees, abd 65 degrees, pain with ER touching back of head and with abd Jail Goal (LTG) Pt will demonstrate improved AROM of RUE to achieve at least 130 degrees of shoulder flex and abd with pain at 2/10 or less in order to improve function. LTG Duration 07/11/25 Assessment Summary Assessment Maame demonstrates improved self-awareness for LE alignment with STS. Progressed STS w/ Lvl 1 Tb above knees which improves LE alignment. Pt demos improved form w/ sidelying clamshells w/ repetition - added to HEP - HO given. She is cued for wider base of support with picking up objects from the ground and demos improved mechanics and self-awareness. Physical Therapy Plan Frequency and Duration Frequency of 2x/Week Treatment Duration of 12 treatment (weeks) Plan of Care Start 04/17/25 Date Plan of Care End 07/11/25 Date Therapeutic Interventions Therapeutic Balance Training,Gait Training,Home Exercise Program, Interventions Joint Mobilizations,Manual Therapy,Neuromuscular Re- education,Patient/Caregiver Education,Soft Tissue Mobilization,Taping,Therapeutic Activities,Therapeutic Exercises Modalities Cold Pack/Ice Massage,Hot Packs,Iontophoresis Next Visit Focus/Plan Next Note Type Treatment Note Next Visit Plan Review seated UT and LS stretches, and sidelying clamshells and add to HEP if performed without cues.
--- NOTE | 2025-05-23 17:15 | PT.OTN ---
Physical Therapy Treatment Note PT OP: Full Body Start: 04/25/25 13:06 Freq: Status: Active Protocol: Document 05/23/25 13:59 NBM (Rec: 05/23/25 14:44 NBM Laptop) Out-Patient Physical Therapy Visit Information Visit Information Visit Type Treatment Note Visit Start Time 13:57 Visit Stop Time 14:42 Visit Number 9 Number of WORK MEASUREMENT ENGINEER Visits 4 Progress Note Due 05/25/25 OP-PT Subjective Patient Comments Patient Comments Maame reports her pain around sacrum has been ongoing and so she reached back out to pain specialist who can't get her in until end of September, and is waiting to hear from Dr. Abbott's office to try to get in sooner for pain management, because she can't walk long distances. She would like to focus on shoulder today because there are certain things she can't do without extreme pain like lifting arm out to side. Therapeutic Exercises Supine Exercises Scap depress/retract Supine Exercise Name scapular setting>elbows in 90 deg>gently press elbows down into table Side bilateral Reps/Minutes 10x 5SH hold Comments initial cues for scap setting; positive feedback response Sidelying Exercises Clamshell Sidelying Exercise HEP review Name Side bilateral Resistance gravity Reps/Minutes 10x2 each side Comments cues TrA for improved pelvic stability to prevent rollback Sitting Exercises Hamstring stretch Side bilateral Reps/Minutes 2 x30s ea Comments positive feedback response cervical stretches Sitting Exercise HEP review: chin tuck: 1. UT 2. LS 3. Scalenes Name Side right Equipment Used hands in lap Reps/Minutes 10 breaths ea Comments R>L tightness. Cues slow, gentle, painfree. Standing Exercises STS Standing Exercise sit to stand - HEP review Name Resistance lvl 1 Tb added above knees Equipment Used standard mesh chair Reps/Minutes x10 w/ gluteal squeeze and LE alignment Comments Good TA, hip hinge, LE align; gluteal squeeze Manual Therapy Treatment Consent Patient gave verbal Yes consent for manual treatment Soft Tissue Mobilization neck Body Location R UT, LS Mobilization Type Cross-Friction,Instrument Assisted,Rolling,Other Intensity/Depth Moderate Body Position Sidelying Comments cupping manual pin and stretch to R UT and LS 30s ea positive response with improved palpable tension shoulder Body Location R rhomboid and LS Mobilization Type Cross-Friction,Rolling,Sustained Pressure Intensity/Depth Moderate Body Position Sidelying Joint Mobilizations scapula Joint scapulothoracic Direction rot, depression Grade II Body Position Sidelying GH jt Joint R glenohumeral jt Direction inferior, posterior Grade II Body Position Hooklying Reps/Duration 10x2 Comments positive feedback response Nerve Glides R sciatic Comments heavy cues for gentle, slow movement Hot Pack/Cold Pack Treatment Cold Pack Location R shoulder Patient Position Hooklying Patient Tolerance Good Comments LEs elevated on bolster, 10 min Physical Therapy Assessment Goals 3 Impairment BLE strength Impairment R hip flex 3+, R hip abd 4- R knee ext 4- L knee flex 3 L DF 3- Short Term Goal (STG Pt will improve BLE strength by 2 MMT points in order ) to improve stability and functional mobility. STG Duration 05/30/25 Skilled Nursing Goal (LTG) Pt will demonstrate at least 10 in 30s STS test without UEs from 17 chair in order to demonstrate improved functional mobility for age range. LTG Duration 07/11/25 2 Impairment RUE Strength Impairment On eval: R shoulder flex 4, ER 4, abd 4- Skilled Nursing Goal (LTG) Pt will demonstrate improved strength of RUE to achieve at least 4+/5 of shoulder flex, ER, and abd with pain at 2/10 or less in order to improve function. LTG Duration 07/11/25 1 Impairment RUE ROM Impairment On eval: R shoulder flex 90 degrees, abd 65 degrees, pain with ER touching back of head and with abd Plastic Press Molder Goal (LTG) Pt will demonstrate improved AROM of RUE to achieve at least 130 degrees of shoulder flex and abd with pain at 2/10 or less in order to improve function. LTG Duration 07/11/25 Assessment Summary Assessment Treatment focus on R shoulder pain management and pt reports pain improvement and demonstrates improved R shoulder abduction painfree range of motion ( measurements not taken). She is educated on use of cryotherapy for pain management with positive feedback response to trial end of session. Physical Therapy Plan Frequency and Duration Frequency of 2x/Week Treatment Duration of 12 treatment (weeks) Plan of Care Start 04/17/25 Date Plan of Care End 07/11/25 Date Next Visit Focus/Plan Next Note Type Treatment Note Next Visit Plan Review seated UT and LS stretches, and sidelying clamshells and add to HEP if performed without cues.
--- NOTE | 2025-05-29 16:06 | PT.OTN ---
Current Diagnoses Other shoulder lesions, right shoulder (05/29/25) Other specified postprocedural states (05/29/25) Physical Therapy Treatment Note PT OP: Full Body Start: 04/25/25 13:06 Freq: Status: Active Protocol: Document 05/29/25 12:51 WET CROWN BLOCKING OPERATOR (Rec: 05/29/25 13:51 WET CROWN BLOCKING OPERATOR Laptop) Out-Patient Physical Therapy Visit Information Visit Information Visit Type Progress Note Visit Start Time 13:05 Visit Stop Time 13:51 Visit Number 10 Number of TUNNEL KILN FIRER Visits 0 Progress Note Due 06/28/25 OP-PT Subjective Patient Comments Patient Comments Pt reports she felt really good after cupping at last session and the relief was sustained to help with improved shoulder and neck movement. Pt reports she still feels pain at center of low back dependent on what activities she does and how much she does. She does feel stronger in back and hips overall and has noticed improved standing endurance to cook and clean up and walk around outside in yard. Current pain level 2-3/10 mid low back, 1/10 R shoulder. Therapeutic Exercises Other Exercises AROM Other Exercise Name R UE and BLE for progress note MMT Other Exercise Name R UE and BLE for progress note Therapeutic Activity Therapeutic Activity 30s STS Reps/Minutes x6 Comments without UE use, slight increased pain to upper back Manual Therapy Treatment Consent Patient gave verbal Yes consent for manual treatment Soft Tissue Mobilization shoulder Body Location R rhomboid and LS Mobilization Type Cross-Friction,Rolling,Sustained Pressure Intensity/Depth Moderate Body Position Sidelying Comments tightness and moderate trigger points noted Physical Therapy Assessment Goals 3 Impairment BLE strength Impairment R hip flex 3+, R hip abd 4- R knee ext 4- L knee flex 3 L DF 3- Short Term Goal (STG Pt will improve BLE strength by 2 MMT points in order ) to improve stability and functional mobility. 05/29: Progressing, R hip flex 4/5, R hip abd 3, R knee ext 4, L knee flex 4-, L DF 4+ without increased pain-- -Not met with R hip abd or R knee ext STG Duration 05/30/25 On Air Talent Goal (LTG) Pt will demonstrate at least 10 in 30s STS test without UEs from 17 chair in order to demonstrate improved functional mobility for age range. 05/29: Progressing, 6 with slight increased pain to upper back LTG Duration 07/11/25 2 Impairment RUE Strength Impairment On eval: R shoulder flex 4, ER 4, abd 4- Senior Care Goal (LTG) Pt will demonstrate improved strength of RUE to achieve at least 4+/5 of shoulder flex, ER, and abd with pain at 2/10 or less in order to improve function. 05/29: Slowly progressing: R shoulder flex 4, abd 4-, ER 4- LTG Duration 07/11/25 1 Impairment RUE ROM Impairment On eval: R shoulder flex 90 degrees, abd 65 degrees, pain with ER touching back of head and with abd On Air Talent Goal (LTG) Pt will demonstrate improved AROM of RUE to achieve at least 130 degrees of shoulder flex and abd with pain at 2/10 or less in order to improve function. 05/29: Progressing, R shoulder flex 150 degrees pain free , abd 50 degrees limited by pain to ant shoulder-able to perform 90-150 degrees of abd if brings to shoulder level through flex LTG Duration 07/11/25 Assessment Summary Assessment Pt demonstrates progress towards all goals of RUE strength, ROM, and BLE strength with improvement and goal met in R hip flex, L knee flex, and L DF, improvement in R knee ext but not yet meeting goal, and decreased strength to R hip abd. Improvement towards LTG of BLE strength/endurance with x6 without increased low back pain in 30s STS, slow to no progress in R shoulder strength with decrease in ER strength, meeting LTG with R shoulder flex AROM but with continued poor recruitment of deltoid with continued extreme pain in shoulder abd. Overall pt's low back and R neck/shoulder pain is improving with reported improved standing activity tolerance. Continue skilled PT to progress towards goals. Physical Therapy Plan Frequency and Duration Frequency of 2x/Week Treatment Duration of 12 treatment (weeks) Plan of Care Start 04/17/25 Date Plan of Care End 07/11/25 Date Next Visit Focus/Plan Next Note Type Treatment Note Next Visit Plan R quad exercises, R hip abd exercises, R rhomboid STM, RUE nerve glides, R deltoid isometrics, R shoulder ER exercises
--- NOTE | 2025-05-31 15:09 | PT.OTN ---
Current Diagnoses Other shoulder lesions, right shoulder (05/31/25) Other specified postprocedural states (05/31/25) Physical Therapy Treatment Note PT OP: Full Body Start: 04/25/25 13:06 Freq: Status: Active Protocol: Document 05/31/25 13:00 COSMETICIAN APPRENTICE (Rec: 05/31/25 13:54 COSMETICIAN APPRENTICE Laptop) Out-Patient Physical Therapy Visit Information Visit Information Visit Type Treatment Note Visit Start Time 13:07 Visit Stop Time 13:52 Visit Number 11 Number of ANCHOR TACK PULLER Visits 0 Progress Note Due 06/28/25 OP-PT Subjective Patient Comments Patient Comments Pt reports no back pain currently but her R shoulder is painful again with difficulty lifting to the side and has a clunking feeling when lowering it down. Therapeutic Exercises Supine Exercises Shoulder horizontal abd Supine Exercise Name mod AAROM Side right Reps/Minutes 10x2 Comments mod TC to maintain scap dep/retract with rest break every 3 reps Shoulder Abd/add Supine Exercise Name mod AAROM Side right Reps/Minutes 10x2 Comments improved pain and ROM with post>ant pressure to humeral head Scap depress/retract Supine Exercise Name combined movement Side bilateral Reps/Minutes 10x2 Comments with cupping, Added to HEP without HO per pt request Sitting Exercises Scapular retract/depress Side bilateral Reps/Minutes 10x2 Comments with cupping, mod TC for motion Manual Therapy Treatment Consent Patient gave verbal Yes consent for manual treatment Soft Tissue Mobilization neck Body Location B UTs Mobilization Type Myofascial Release Intensity/Depth Superficial Body Position sitting, hooklying Comments positive response with notable relaxation of B UTs Joint Mobilizations scapula Joint R scapula Direction all directions/circles Grade II Body Position Sidelying Reps/Duration x10 Comments positive response with restrictions/tightness of lower trap GH jt Joint R glenohumeral jt Direction inferior, posterior Grade III Body Position Hooklying Reps/Duration 10x2 Comments R shoulder stretch into adduction with ant>post mob of humeral head with improved pain and PROM, not able to obtain same ROM actively after passive stretch positive feedback response Physical Therapy Assessment Goals 3 Impairment BLE strength Impairment R hip flex 3+, R hip abd 4- R knee ext 4- L knee flex 3 L DF 3- Short Term Goal (STG Pt will improve BLE strength by 2 MMT points in order ) to improve stability and functional mobility. 05/29: Progressing, R hip flex 4/5, R hip abd 3, R knee ext 4, L knee flex 4-, L DF 4+ without increased pain-- -Not met with R hip abd or R knee ext STG Duration 05/30/25 Shelter Goal (LTG) Pt will demonstrate at least 10 in 30s STS test without UEs from 17 chair in order to demonstrate improved functional mobility for age range. 05/29: Progressing, 6 with slight increased pain to upper back LTG Duration 07/11/25 2 Impairment RUE Strength Impairment On eval: R shoulder flex 4, ER 4, abd 4- Shelter Goal (LTG) Pt will demonstrate improved strength of RUE to achieve at least 4+/5 of shoulder flex, ER, and abd with pain at 2/10 or less in order to improve function. 05/29: Slowly progressing: R shoulder flex 4, abd 4-, ER 4- LTG Duration 07/11/25 1 Impairment RUE ROM Impairment On eval: R shoulder flex 90 degrees, abd 65 degrees, pain with ER touching back of head and with abd Shelter Goal (LTG) Pt will demonstrate improved AROM of RUE to achieve at least 130 degrees of shoulder flex and abd with pain at 2/10 or less in order to improve function. 05/29: Progressing, R shoulder flex 150 degrees pain free , abd 50 degrees limited by pain to ant shoulder-able to perform 90-150 degrees of abd if brings to shoulder level through flex LTG Duration 07/11/25 Assessment Summary Assessment Focus this session on B scapular strengthening and loosening of fascia via cupping with active movement. Noted ant translation of R humeral head, pain and ROM improved with ant>post mobilizations of humeral head. Physical Therapy Plan Frequency and Duration Frequency of 2x/Week Treatment Duration of 12 treatment (weeks) Plan of Care Start 04/17/25 Date Plan of Care End 07/11/25 Date Next Visit Focus/Plan Next Note Type Treatment Note Next Visit Plan R quad exercises, R hip abd exercises, R rhomboid STM, RUE nerve glides, R deltoid isometrics, R shoulder ER exercises
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
--- NOTE | 2025-06-14 14:38 | PT.OTN ---
Current Diagnoses Other shoulder lesions, right shoulder (06/14/25) Other specified postprocedural states (06/14/25) Physical Therapy Treatment Note PT OP: Full Body Start: 04/25/25 13:06 Freq: Status: Active Protocol: Document 06/14/25 13:45 DCW (Rec: 06/14/25 14:37 DCW [id number]) Out-Patient Physical Therapy Visit Information Visit Information Visit Type Treatment Note Visit Start Time 13:45 Visit Stop Time 14:30 Visit Number 13 Number of DUNGEON MASTER Visits 0 Progress Note Due 06/28/25 Evaluation Information Evaluation Date 04/17/25 OP-PT Subjective Patient Comments Patient Comments I'm still doing better, but it's slow going. I'm impatient. Still having pain in the L5-S1 area. Still having some issues with her right shoulder, especially with abduction. Gym Equipment Therapeutic Ball Pelvic tilts Exercise Details Pelvic tilts/circles Ball Size/Color Green - 65 cm Body Position Sitting Therapeutic Exercises Supine Exercises Pelvic realignment exercises Supine Exercise Name Adductor ball squeeze, SL pelvic lift,, SL pelvic press Bridges Supine Exercise Name Bridging Side bilateral Comments unable to fully lift, cues breathwork segmental bridge, cues painfree range Standing Exercises Hip Abduction Standing Exercise Hip Abduction Name Side bilateral Resistance Lv 1 loop Hip Extension Standing Exercise Hip Extension Name Side bilateral Resistance Lv 1 loop Hip Hiking Standing Exercise Hip Hiking Name Side bilateral Equipment Used 4 step Manual Therapy Treatment Soft Tissue Mobilization lumbar Body Location QL, paraspinals Mobilization Type Rolling,Other Intensity/Depth Moderate Body Position Sidelying Other Other Manual Resisted right hip extension/left hip flexion for MWM Treatments Physical Therapy Assessment Impairments Impairments Activity Tolerance,Balance,Functional Activities, Functional Mobility,Gait,Pain,Posture,ROM,Sensation, Soft Tissue Mobility,Strength Goals 3 Impairment BLE strength Impairment . Short Term Goal (STG Pt will improve BLE strength by 2 MMT points in order ) to improve stability and functional mobility. 05/29: Progressing, R hip flex 4/5, R hip abd 3, R knee ext 4, L knee flex 4-, L DF 4+ without increased pain-- -Not met with R hip abd or R knee ext STG Duration 05/30/25 B2B Sales Executive Goal (LTG) Pt will demonstrate at least 10 in 30s STS test without UEs from 17 chair in order to demonstrate improved functional mobility for age range. 05/29: Progressing, 6 with slight increased pain to upper back LTG Duration 07/11/25 2 Impairment RUE Strength On eval: R shoulder flex 4, ER 4, abd 4- Impairment . B2B Sales Executive Goal (LTG) Pt will demonstrate improved strength of RUE to achieve at least 4+/5 of shoulder flex, ER, and abd with pain at 2/10 or less in order to improve function. 05/29: Slowly progressing: R shoulder flex 4, abd 4-, ER 4- LTG Duration 07/11/25 1 Impairment RUE ROM Impairment . B2B Sales Executive Goal (LTG) Pt will demonstrate improved AROM of RUE to achieve at least 130 degrees of shoulder flex and abd with pain at 2/10 or less in order to improve function. 05/29: Progressing, R shoulder flex 150 degrees pain free , abd 50 degrees limited by pain to ant shoulder-able to perform 90-150 degrees of abd if brings to shoulder level through flex LTG Duration 07/11/25 Assessment Summary Assessment Pt continues to experiences fairly significant limitations in both her right shoulder and her low back . Exhibiting some SI dysfunction today, experiences SI pain with most attempted activities. Responded well to supine single-leg resisted extension, requested pt to add to HEP. Physical Therapy Plan Frequency and Duration Frequency of 2x/Week Treatment Duration of 12 treatment (weeks) Plan of Care Start 04/17/25 Date Plan of Care End 07/11/25 Date Next Visit Focus/Plan Next Note Type Treatment Note Next Visit Plan Next: Per pt request review plan of care and appropriateness for discharge. POC: R quad exercises, R hip abd exercises, R rhomboid STM, RUE nerve glides, R deltoid isometrics, R shoulder ER exercises
--- NOTE | 2025-06-29 16:59 | PT.OTN ---
Current Diagnoses Other shoulder lesions, right shoulder (06/29/25) Other specified postprocedural states (06/29/25) Physical Therapy Treatment Note PT OP: Full Body Start: 04/25/25 13:06 Freq: Status: Active Protocol: Document 06/29/25 13:55 NBM (Rec: 06/29/25 14:40 NBM Laptop) Out-Patient Physical Therapy Visit Information Visit Information Visit Type Treatment Note Visit Start Time 13:52 Visit Stop Time 14:38 Visit Number 14 Number of BORING MACHINE OPERATOR Visits 1 Progress Note Due 06/28/25 Evaluation Information Evaluation Date 04/17/25 OP-PT Subjective Patient Comments Patient Comments I've been doing extra exercises. I've been working on using my back muscles. I'm getting stronger. She was doing R arm circles and now can lift it out to the side higher with less pain. Gym Equipment Therapeutic Ball Pelvic tilts Exercise Details Pelvic tilts/circles Ball Size/Color Green - 65 cm Body Position Sitting Therapeutic Exercises Supine Exercises Pelvic realignment exercises Supine Exercise Name Adductor ball squeeze, SL pelvic lift,, SL pelvic press Equipment Used small yellow ball Comments per Pelvic Realignment HO (given to pt) LTR Supine Exercise Name neutral spine Side bilateral Reps/Minutes x10 ea w/ breathwork Shoulder Abd/add Supine Exercise Name AROM - in standing. Side right Reps/Minutes x5 Comments limited by pain to ant shoulder at 90 deg. Bridges Supine Exercise Name Bridging w/ breathwork Side bilateral Reps/Minutes x10 Comments cues for LE alignment and heel drive Standing Exercises Hip Abduction Standing Exercise Hip Abduction Name Side bilateral Resistance Lv 1 loop around shins Equipment Used handrail Reps/Minutes 2x15 ea Hip Extension Standing Exercise Hip Extension Name Side bilateral Resistance Lv 1 loop Equipment Used handrail Reps/Minutes x15 ea Comments R SI jt discomfort improves with cues for smaller range . Hip Hiking Standing Exercise Hip Hiking Name Side bilateral Equipment Used 4 step Physical Therapy Assessment Goals 3 Impairment BLE strength Impairment . Short Term Goal (STG Pt will improve BLE strength by 2 MMT points in order ) to improve stability and functional mobility. 05/29: Progressing, R hip flex 4/5, R hip abd 3, R knee ext 4, L knee flex 4-, L DF 4+ without increased pain-- -Not met with R hip abd or R knee ext STG Duration 05/30/25 Rn Shift Mgr Goal (LTG) Pt will demonstrate at least 10 in 30s STS test without UEs from 17 chair in order to demonstrate improved functional mobility for age range. 05/29: Progressing, 6 with slight increased pain to upper back LTG Duration 07/11/25 2 Impairment RUE Strength On eval: R shoulder flex 4, ER 4, abd 4- Impairment . Rn Shift Mgr Goal (LTG) Pt will demonstrate improved strength of RUE to achieve at least 4+/5 of shoulder flex, ER, and abd with pain at 2/10 or less in order to improve function. 05/29: Slowly progressing: R shoulder flex 4, abd 4-, ER 4- LTG Duration 07/11/25 1 Impairment RUE ROM Impairment . Rn Shift Mgr Goal (LTG) Pt will demonstrate improved AROM of RUE to achieve at least 130 degrees of shoulder flex and abd with pain at 2/10 or less in order to improve function. 05/29: Progressing, R shoulder flex 150 degrees pain free , abd 50 degrees limited by pain to ant shoulder-able to perform 90-150 degrees of abd if brings to shoulder level through flex 06/29: Progressing, R shoulder abduction to 90 degrees before limited by pain to ant shoulder. LTG Duration 07/11/25 Progress Towards Goals Progress Towards Progressing Toward Goals Goals Assessment Summary Assessment Treatment focus on HEP review. Maame is given supine Pelvic Realignment handout and instructed in following sequence presented with sufficient hold time as instructed, followed by bridging with cues for heel drive. R UE AROM is improving as she is able to perform R shoulder abduction to 90 degrees today before limited by pain to anterior shoulder. Physical Therapy Plan Frequency and Duration Frequency of 2x/Week Treatment Duration of 12 treatment (weeks) Plan of Care Start 04/17/25 Date Plan of Care End 07/11/25 Date Therapeutic Interventions Therapeutic Balance Training,Gait Training,Home Exercise Program, Interventions Joint Mobilizations,Manual Therapy,Neuromuscular Re- education,Patient/Caregiver Education,Soft Tissue Mobilization,Taping,Therapeutic Activities,Therapeutic Exercises Modalities Cold Pack/Ice Massage,Hot Packs,Iontophoresis Next Visit Focus/Plan Next Note Type Treatment Note Next Visit Plan POC: R quad exercises, R hip abd exercises, R rhomboid STM, RUE nerve glides, R deltoid isometrics, R shoulder ER exercises
--- NOTE | 2025-07-04 16:53 | PT.OTN ---
Current Diagnoses Other shoulder lesions, right shoulder (07/04/25) Other specified postprocedural states (07/04/25) Physical Therapy Treatment Note PT OP: Full Body Start: 04/25/25 13:06 Freq: Status: Active Protocol: Document 07/04/25 13:53 NBM (Rec: 07/04/25 14:13 NBM Laptop) Out-Patient Physical Therapy Visit Information Visit Information Visit Type Treatment Note Visit Start Time 13:52 Visit Stop Time 14:32 Visit Number 15 Number of PRODUCT DESIGN MANAGER Visits 2 Progress Note Due 06/28/25 Evaluation Information Evaluation Date 04/17/25 OP-PT Subjective Patient Comments Patient Comments Maame reports she is ready for discharge to continue her home exercises and has an appointment to follow up with the orthopedist on 07/19 about the spot on her back that hurts. Doing the pillow squeeze aggravates that spot. Her R arm can now go much higher without pain and she's doing arm circles still which help. Shoulder Goniometric Range of Motion Shoulder R Shoulder ROM WFL No Testing Position Supine and Sitting Flexion 180 Extension 60 Abduction 180 External Rotation at 85 90 degrees Abduction Internal Rotation T4 Behind Back (text) Comments abduction 135 painfree, 135-180 abd with 2-3/10 pain to R ant shoulder. Shoulder Strength Shoulder Manual Muscle Testing R Flexion 4+ Good+ Abduction (C5) 4 Good External Rotation 4 Good Comments painfree. Hip Strength Hip Manual Muscle Testing L Flexion (L2) 4 Good Abduction 4+ Good+ Adduction 4 Good R Flexion (L2) 4 Good Abduction 4+ Good+ Adduction 4 Good Therapeutic Exercises Supine Exercises Pelvic realignment exercises Supine Exercise Name Adductor ball squeeze, SL pelvic lift,, SL pelvic press Equipment Used thick folded pillow Comments per Pelvic Realignment HO (given to pt) Other Exercises AROM Other Exercise Name R UE flexion, abduction (w and wo elbow extension), ER Comments standing and supine, for possible discharge MMT Other Exercise Name R UE and BLE for possible discharge Self-Care/Home Management Treatment Education Patient Education Home Exercise Program,Pain Management Other Education HEP reviewed in anticipation of discharge, with focus on pelvic realignment ex's needing to be performed gently. Pt reminded of use of cryotherapy which they have found to be effective but forget for shoulder pain management. Physical Therapy Assessment Goals 3 Impairment BLE strength Impairment . Short Term Goal (STG Pt will improve BLE strength by 2 MMT points in order ) to improve stability and functional mobility. 05/29: Progressing, R hip flex 4/5, R hip abd 3, R knee ext 4, L knee flex 4-, L DF 4+ without increased pain-- -Not met with R hip abd or R knee ext 07/04/20: Goal met: R hip abd 4+, R knee ext 4+ STG Duration 05/30/25 Gravel Truck Driver Goal (LTG) Pt will demonstrate at least 10 in 30s STS test without UEs from 17 chair in order to demonstrate improved functional mobility for age range. 05/29: Progressing, 6 with slight increased pain to upper back 07/04/20: Goal Met: 12 in 30s STS test without UEs from 17 chair. LTG Duration 07/11/25 2 Impairment RUE Strength On eval: R shoulder flex 4, ER 4, abd 4- Impairment . Gravel Truck Driver Goal (LTG) Pt will demonstrate improved strength of RUE to achieve at least 4+/5 of shoulder flex, ER, and abd with pain at 2/10 or less in order to improve function. 05/29: Slowly progressing: R shoulder flex 4, abd 4-, ER 4- 07/04/25: Progressing. R shoulder flex 4+, abd 4, ER 4; pt reports no pain. LTG Duration 07/11/25 1 Impairment RUE ROM Impairment . Gravel Truck Driver Goal (LTG) Pt will demonstrate improved AROM of RUE to achieve at least 130 degrees of shoulder flex and abd with pain at 2/10 or less in order to improve function. 05/29: Progressing, R shoulder flex 150 degrees pain free , abd 50 degrees limited by pain to ant shoulder-able to perform 90-150 degrees of abd if brings to shoulder level through flex 06/29: Progressing, R shoulder abduction to 90 degrees before limited by pain to ant shoulder. 07/04: Goal met: R jayme flex 180 degrees pain free, abd 135 deg pain free; abd to 180 deg with 2-3/10 pain to R ant shoulder. LTG Duration 07/11/25 Assessment Summary Assessment Per Maame and PT treatment focus on discharge to [facility] and follow up with orthopedic surgeon for possible injection for SI pain. Pt meets all goals except for R shoulder strength for abduction and external rotation at this time. She is able to perform R shoulder abduction to 135 degrees without pain and pain 2-3/10 up to 180 degrees. Pt encouraged to use cryotherapy for R shoulder pain management. Physical Therapy Plan Frequency and Duration Frequency of 2x/Week Treatment Duration of 12 treatment (weeks) Plan of Care Start 04/17/25 Date Plan of Care End 07/11/25 Date Next Visit Focus/Plan Next Note Type Treatment Note Next Visit Plan Possible D/C to HEP and f/u with ortho 07/19/25 per PT and pt agreement. POC: R quad exercises, R hip abd exercises, R rhomboid STM, RUE nerve glides, R deltoid isometrics, R shoulder ER exercises
--- NOTE | 2025-07-04 18:00 | PT.OPDS ---
Current Diagnoses Other shoulder lesions, right shoulder (07/04/25) Other specified postprocedural states (07/04/25) Visit Care Team Role Provider Type Odalys Jessica DO Family Provider Physician Primary Care Provider Specialty: Family Practice Address: [address] [place] [address], [address], [place], [address] Email: [email or web address] Jack Cole DO Attending Provider Non-Staff Referring Provider Specialty: Orthopedic Surgery Address: [facility] [address], [place], [address] Email: Visit Number Visit Number 15 Discharge Summary PT OP: Full Body Start: 04/25/25 13:06 Freq: Status: Active Protocol: Document 07/04/25 15:00 DCW (Rec: 07/05/25 13:04 DCW [id number]) Out-Patient Physical Therapy Visit Information Visit Information Visit Type Discharge Summary Physical Therapy Assessment Goals 3 Impairment BLE strength Impairment . Short Term Goal (STG Pt will improve BLE strength by 2 MMT points in order ) to improve stability and functional mobility. 05/29: Progressing, R hip flex 4/5, R hip abd 3, R knee ext 4, L knee flex 4-, L DF 4+ without increased pain-- -Not met with R hip abd or R knee ext 07/04/20: Goal met: R hip abd 4+, R knee ext 4+ STG Duration 05/30/25 Mcfp Goal (LTG) Pt will demonstrate at least 10 in 30s STS test without UEs from 17 chair in order to demonstrate improved functional mobility for age range. 05/29: Progressing, 6 with slight increased pain to upper back 07/04/20: Goal Met: 12 in 30s STS test without UEs from 17 chair. LTG Duration 07/11/25 2 Impairment RUE Strength On eval: R shoulder flex 4, ER 4, abd 4- Impairment . Winding Machine Operator Goal (LTG) Pt will demonstrate improved strength of RUE to achieve at least 4+/5 of shoulder flex, ER, and abd with pain at 2/10 or less in order to improve function. 05/29: Slowly progressing: R shoulder flex 4, abd 4-, ER 4- 07/04/25: Progressing. R shoulder flex 4+, abd 4, ER 4; pt reports no pain. LTG Duration 07/11/25 1 Impairment RUE ROM Impairment . Mcfp Goal (LTG) Pt will demonstrate improved AROM of RUE to achieve at least 130 degrees of shoulder flex and abd with pain at 2/10 or less in order to improve function. 05/29: Progressing, R shoulder flex 150 degrees pain free , abd 50 degrees limited by pain to ant shoulder-able to perform 90-150 degrees of abd if brings to shoulder level through flex 06/29: Progressing, R shoulder abduction to 90 degrees before limited by pain to ant shoulder. 07/04: Goal met: R jayme flex 180 degrees pain free, abd 135 deg pain free; abd to 180 deg with 2-3/10 pain to R ant shoulder. LTG Duration 07/11/25 Assessment Summary Assessment Pt feeling like she has progressed as well as she can, feels she has reached a plateau, and feeling overall quite a bit better about her general function. Pt appropriate for discharge from skilled therapy at this time, has largely met most goals, although still limited with R shoulder strength for abd and ER. Physical Therapy Plan Frequency and Duration Frequency of 2x/Week Treatment Duration of 12 treatment (weeks) Plan of Care Start 04/17/25 Date Plan of Care End 07/11/25 Date Discharge Physical Therapy Discharge Comments Discharge to independent [facility] Next Visit Focus/Plan Next Note Type Discharge Summary
== END 2025-07-06 09:37 | disposition home or self-care (01) ==
LOC: PHYS 13:45
PROVIDERS: Family Provider Family Medicine; PCP Family Medicine; Referring Provider Orthopaedic Surgery Orthopaedic Surgery of the Spine; Visit Provider Orthopaedic Surgery Orthopaedic Surgery of the Spine
DX: Z98.890 Other specified postprocedural states (principal); M75.81 Other shoulder lesions, right shoulder
CPT/HCPCS: 97110; 97140; 97163; 97530; 97535